=== PATIENT | female | born 1995 | race Caucasian/White ===

== ENCOUNTER → 2018-05-29 11:41 | Outpatient (REF) | payer BC, SELFPAY ==
[2018-05-29 21:14] LABS: Iron 33 ug/dL (50-175); Total Iron Binding Capacity 440 ug/dL (250-450); Transferrin Sat 8 % (15-50)
[2018-05-29 21:27] LABS: Absolute Basophil Count 0.03 k/cumm (0.0-0.2); Absolute Lymphocyte Count 1.83 k/cumm (1.2-3.4); Absolute Monocyte Count 0.57 k/cumm (0.11-0.7); Absolute Neutrophil Count 2.84 k/cumm (1.2-6.7); Basophils % 0.5; Eosinophils % 11.7; HCT 37.3 % (36.0-46.0); HGB 11.2 g/dL (12.0-15.5); Lymphocytes % 30.7; Mean Corpuscular Hemoglobin 23.6 pg (27.0-33.0); Mean Corpuscular Volume 78.7 fL (80-95); Mean Platelet Volume 10.5 fL (8.0-11.0); Monocytes % 9.5; Neutrophils % 47.6; Platelet Count 359 x1000/uL (130-400); RBC 4.74 m/cumm (4.00-5.20); RBC Distribution Width 15.3 % (11.7-14.6); White Blood Cell Count 5.97 k/cumm (4.4-10.8)
[2018-05-29 21:48] LABS: ALT 14 U/L (12-78); AST 16 U/L (15-37); Albumin 4.5 g/dL (3.4-5.0); Alkaline Phosphatase 59 U/L (46-116); Bilirubin, Total 0.4 mg/dL (0.2-1.0); Ferritin 6 ng/mL (8-388); Total Protein 7.8 g/dL (6.4-8.2)
[2018-05-29 22:05] LABS: Bilirubin, Direct 0.13 mg/dL (0.00-0.20)
[2018-05-29 22:50] LABS: Diff Comment Diff Reviewed
== END ==
LOC: NCHCN 11:41
PROVIDERS: PCP Nurse Practitioner; Visit Provider Nurse Practitioner
DX: L50.9 Urticaria, unspecified (principal); D50.9 Iron deficiency anemia, unspecified
CPT/HCPCS: 80076; 82728; 83540; 83550; 84443; 85025

== ENCOUNTER 2020-12-15 17:38 | Outpatient (REF) | payer BC, SELFPAY ==
--- NOTE | 2020-12-15 10:45 | PAPFT_PTH ---
PATIENT: Nanci Freed LOC: [facility]#:[id number] AGE/SX: 25/F ROOM: RE12/15/[address]: Honey Campbell : 1995 BED: DIS: 12/15/2020 SPEC #: [id number] RECD: 12/16/20 13:04 STATUS: LINDA TRUONG #: [id number] BENJAMIN: 12/15/20 10:[address]: Honey Campbell DEPT: [facility] Cytology RECD BY: Fiona Marti ENTERED: 12/16/20 13:04 SP TYPE: PAPFT OTHR DR: Marion Balderrama Tissues: 1 - CX/ENDOCX FOR PAP SMEARS Procedures: PAP THIN PREP/[facility] Screening Comments: [id number] (CHLAMYDIA/GC)
[2020-12-18 07:49] LABS: Chlamydia Result Negative (Negative); GC Result Negative (Negative)
== END 2020-12-15 17:39 | disposition home or self-care (01) ==
LOC: NCHCN 17:38
PROVIDERS: PCP Nurse Practitioner; Visit Provider Family Medicine
DX: Z11.3 Encounter for screening for infections with a predominantly sexual mode of transmission (principal); Z12.4 Encounter for screening for malignant neoplasm of cervix; Z00.00 Encounter for general adult medical examination without abnormal findings
CPT/HCPCS: 87491; 87591; 88142

== ENCOUNTER 2021-10-26 16:57 | Outpatient (REF) | payer BC, SELFPAY ==
[2021-10-26 20:55] LABS: Abs Immature Grans 0.01 10^3/uL (0.0-0.06); Absolute Basophil Count 0.04 10^3/uL (0.0-0.2); Absolute Eosinophil Count 0.36 10^3/uL (0.0-0.7); Absolute Lymphocyte Count 1.74 10^3/uL (1.2-3.4); Absolute Neutrophil Count 5.28 10^3/uL (1.2-6.7); Basophils % 0.5; Eosinophils % 4.4; HCT 39.8 % (36.0-46.0); HGB 11.7 g/dL (11.2-15.7); Immature Grans % 0.1; Lymphocytes % 21.4; MCH 22.3 pg (27.0-33.0); MCHC 29.4 % (32.0-36.0); MCV 75.8 fL (80-95); MPV 10.2 fL (8.0-11.0); Monocytes % 8.6; Nucleated RBC 0 %; Platelet Count 392 10^3/uL (130-400); RBC 5.25 10^6/uL (3.93-5.22); RDW 16.8 % (11.7-14.6); WBC 8.13 10^3/uL (4.4-10.8)
[2021-10-26 21:06] LABS: Iron 24 ug/dL (50-170)
[2021-10-26 21:08] LABS: ALT 26 U/L (14-59); AST 19 U/L (15-37); Albumin 4.1 g/dL (3.4-5.0); Alkaline Phosphatase 59 U/L (46-116); Anion Gap 10.4 mmol/L (3-11); BUN 10 mg/dL (7-18); Bilirubin, Total 0.2 mg/dL (0.2-1.0); CO2 26.6 mmol/L (21.0-32.0); CREATININE 0.6 mg/dL (0.55-1.02); Calcium 9.7 mg/dL (8.5-10.1); Chloride 103 mmol/L (98-107); Glucose 94 mg/dL (74-106); Potassium 3.8 mmol/L (3.5-5.1); Sodium 140 mmol/L (136-145); Total Protein 7.9 g/dL (6.4-8.2)
== END 2021-10-26 16:58 | disposition home or self-care (01) ==
LOC: NCHCN 16:57
PROVIDERS: PCP Family Medicine; Visit Provider Family Medicine
DX: F41.8 Other specified anxiety disorders (principal); D50.9 Iron deficiency anemia, unspecified
CPT/HCPCS: 80053; 83540; 85025

== ENCOUNTER 2024-01-24 05:16 | Outpatient (CLI) | payer BC, SELFPAY ==
[2024-01-24] MEDS: Inhaler, Assist Device 1 EACH MC (16:41)
[2024-01-24] MEDS: Levalbuterol HFA 15 GM INH 4 PUFF IH (16:41)
--- NOTE | 2024-01-25 15:07 | W.PFT ---
Date of service: 01/24/24 Time of Service: 15:30 Pulmonary Function Test Result Indications: Asthma Interpretation Spirometry: There is no airflow limitation. No bronchodilator response. Lung Volumes: Normal lung volumes Diffusion Capacity: Normal diffusion Airway Pressure: Normal airways resistance Impression Normal pulmonary function testing Clinical Correlation therefore is recommended.
== END 2024-01-24 05:17 | disposition home or self-care (01) ==
LOC: RT 05:16
PROVIDERS: PCP Family Medicine; Visit Provider Family Medicine
DX: J45.909 Unspecified asthma, uncomplicated (principal)
CPT/HCPCS: 94060; 94726; 94729

== ENCOUNTER 2024-05-11 01:00 | Outpatient (CLI) | payer BC, SELFPAY ==
[2024-05-11 14:43] LABS: Panorama Kit Sent via Fed Ex
[2024-05-11 14:52] LABS: Abs Immature Grans 0.05 10^3/uL (0.0-0.06); Absolute Basophil Count 0.04 10^3/uL (0.0-0.2); Absolute Lymphocyte Count 1.51 10^3/uL (1.2-3.4); Absolute Monocyte Count 0.61 10^3/uL (0.1-0.8); Absolute Neutrophil Count 6.79 10^3/uL (1.2-6.7); Basophils % 0.4 %; Eosinophils % 4.3 %; HCT 34.4 % (36.0-46.0); HGB 10.5 g/dL (11.2-15.7); Immature Grans % 0.5 %; Lymphocytes % 16.1 %; MCH 22.8 pg (27.0-33.0); MCHC 30.5 % (32.0-36.0); MCV 75 fL (80-95); MPV 9.6 fL (8.0-11.0); Monocytes % 6.5 %; Neutrophils % 72.2 %; Platelet Count 310 10^3/uL (130-400); RBC 4.61 10^6/uL (3.93-5.22); RDW 17.5 % (11.7-14.6)
[2024-05-11 15:39] LABS: Diff Comment RBC Morph Reviewed; Microcytosis 1+
[2024-05-11 22:44] LABS: Hepatitis B Surface Ag Negative (Negative)
[2024-05-11 23:12] LABS: Hepatitis C Ab w Rflx HCV PCR Negative (Negative)
[2024-05-11 23:28] LABS: HIV-1/2 Ag & Ab Screen Negative (Negative)
[2024-05-13 14:38] LABS: Syphilis IgG w/Reflex Nonreactive (Nonreactive)
[2024-05-14 12:16] LABS: Varicella IgG Antibody Negative (See Note)
[2024-05-14 12:42] LABS: Rubella IgG Ab (UVM) Negative (See Note)
== END 2024-05-11 01:01 | disposition home or self-care (01) ==
LOC: LBO 01:00
PROVIDERS: PCP Nurse Practitioner Family; Visit Provider Advanced Practice Midwife
DX: Z34.91 Encounter for supervision of normal pregnancy, unspecified, first trimester (principal)
CPT/HCPCS: 36415; 86787; 86803; 86850; 86900; 86901; 87340; 87389; 85025; 86762; 86780

== ENCOUNTER 2024-05-11 14:36 | Outpatient (REF) | payer BC, SELFPAY ==
--- NOTE | 2024-05-11 14:00 | PAPFT_PTH ---
PATIENT: Nanci Freed LOC: [facility] U#:[id number] AGE/SX: 29/F ROOM: RE05/11/[address]: Ofelia Heath : 1995 BED: DIS: 05/11/2024 SPEC #: [id number] RECD: 05/11/24 17:29 STATUS: LINDA REQ #: [id number] BENJAMIN: 05/11/24 14:[address]: Ofelia Heath DEPT: [facility] Cytology RECD BY: Fiona Marti ENTERED: 05/11/24 17:29 SP TYPE: PAPFT OTHR DR: Caitie Patterson Tissues: 1 - CX/ENDOCX FOR PAP SMEARS Procedures: PAP THIN PREP/[facility]VM Screening Comments: [id number] (CHLAMYDIA/GC)
[2024-05-11 17:14] LABS: *AMPHETAMINES SCREEN URINE Negative (Negative); *BARBITURATES SCREEN URINE Negative (Negative); *BENZODIAZEPINES SCREEN URINE Negative (Negative); Cannabinoids THC Positive (Negative); Cocaine Screen,Urine Negative (Negative); METHADONE URINE SCREEN Negative (Negative); OPIATES URINE SCREEN Negative (Negative)
[2024-05-11 17:20] LABS: Tricyclic Antidepressants Negative (Negative)
[2024-05-14 10:13] LABS: Fentanyl Scr w/Rfx Confirm Negative ng/mL (<1)
[2024-05-14 12:47] LABS: Chlamydia Result Negative (Negative); GC Result Negative (Negative)
[2024-05-17 05:26] LABS: Buprenorphine Negative ng/mL (Cutoff: 5.0); Norbuprenorphine Negative ng/mL (Cutoff: 2.5)
== END 2024-05-11 14:37 | disposition home or self-care (01) ==
LOC: LBN 14:36
PROVIDERS: PCP Nurse Practitioner Family; Visit Provider Advanced Practice Midwife
DX: Z34.91 Encounter for supervision of normal pregnancy, unspecified, first trimester (principal)
CPT/HCPCS: 80307; 80348; 87491; 87591; 88142; 87086; 87480; 87510; 87660

== ENCOUNTER 2024-09-06 01:00 | Outpatient (CLI) | payer BC, SELFPAY ==
--- NOTE | 2024-09-06 11:45 | DI.US_ITS ---
Exam(s) US OB LUIS WEIGHT EXAM: US OB LUIS WEIGHT CLINICAL HISTORY: interval growth,smoker,luis,f/u kidneys,z34.90,O35.EXX0. TECHNIQUE: Transabdominal obstetrical ultrasound performed. COMPARISON: US POCUS EXAM from 04/17/2024 US US OB 2-3 TRIMESTER from 07/06/2024 US US OB F/U FACIAL/LVOT/RVOT from 07/13/2024 FINDINGS:: Number of fetuses: 1 position: CEPHALIC Placental location: POSTERIOR No evidence of previa. BIOMETRIC DATA: BPD: 7.43cm, 29weeks 6days HC: 27.03cm, 29weeks 3days AC: 24.73cm, 29weeks FL: 5.66cm, 29weeks 5days EFW: 1,373.34g, 3lb 0.56oz, 66% Composite Age: 29weeks 4days [facility]: 11/18/2024 Heart Rate: 152bpm Amniotic fluid index: 11.57cm. Visually, amount of fluid is within normal limits. The kidneys are also imaged. The renal pelves measure less than 4 millimeters, not increasing from prior. IMPRESSION: size and weight are within the expected range. DATA REPOSITORY:
== END 2024-09-06 01:20 ==
LOC: DI 01:00
PROVIDERS: PCP Nurse Practitioner Family; Visit Provider Advanced Practice Midwife
DX: O35.EXX0 Maternal care for other (suspected) fetal abnormality and damage, fetal genitourinary anomalies, not applicable or unspecified (principal); F17.210 Nicotine dependence, cigarettes, uncomplicated; Z3A.29 29 weeks gestation of pregnancy
CPT/HCPCS: 76816

== ENCOUNTER 2024-09-06 01:58 | Outpatient (CLI) | payer BC, SELFPAY ==
[2024-09-06 12:40] LABS: HCT 32.9 % (36.0-46.0); HGB 9.9 g/dL (11.2-15.7); MCH 22.7 pg (27.0-33.0); MCHC 30.1 % (32.0-36.0); MCV 76 fL (80-95); MPV 10.2 fL (8.0-11.0); Platelet Count 223 10^3/uL (130-400); RBC 4.36 10^6/uL (3.93-5.22); RDW 15.7 % (11.7-14.6); RDW-SD 42.5 fL; WBC 9.49 10^3/uL (4.4-10.8)
[2024-09-06 13:14] LABS: Glucose,1 Hr (Glucola) 100 mg/dL (80-140)
== END 2024-09-06 01:59 | disposition home or self-care (01) ==
LOC: LBO 01:58
PROVIDERS: Advanced Practice Midwife; PCP Nurse Practitioner Family; Visit Provider Advanced Practice Midwife
DX: Z34.93 Encounter for supervision of normal pregnancy, unspecified, third trimester (principal); Z3A.28 28 weeks gestation of pregnancy
CPT/HCPCS: 36415; 82950; 85027

== ENCOUNTER 2024-10-25 11:19 | Outpatient (REF) | payer MEDICAID, SELFPAY ==
[2024-10-25 12:52] LABS: *AMPHETAMINES SCREEN URINE Negative (Negative); *BARBITURATES SCREEN URINE Negative (Negative); *BENZODIAZEPINES SCREEN URINE Negative (Negative); Cannabinoids THC Positive (Negative); Cocaine Screen,Urine Negative (Negative); METHADONE URINE SCREEN Negative (Negative); OPIATES URINE SCREEN Negative (Negative)
[2024-10-25 12:53] LABS: Tricyclic Antidepressants Negative (Negative)
[2024-10-26 13:46] LABS: Fentanyl Scr w/Rfx Confirm Negative ng/mL (<1)
[2024-10-31 07:47] LABS: Buprenorphine Negative ng/mL (Cutoff: 5.0)
== END 2024-10-25 11:20 | disposition home or self-care (01) ==
LOC: LBN 11:19
PROVIDERS: Advanced Practice Midwife; PCP Nurse Practitioner Family; Visit Provider Advanced Practice Midwife
DX: Z34.91 Encounter for supervision of normal pregnancy, unspecified, first trimester (principal)
CPT/HCPCS: 80307; 80348

== ENCOUNTER 2024-11-07 09:15 | Outpatient (REF) | payer MEDICAID, SELFPAY | END 2024-11-07 09:16 | disposition home or self-care (01) | LOC: LBN 09:15 | PROVIDERS: PCP Nurse Practitioner Family; Visit Provider Advanced Practice Midwife | DX: Z34.93 Encounter for supervision of normal pregnancy, unspecified, third trimester (principal) | CPT/HCPCS: 87081 ==

== ENCOUNTER 2024-11-23 09:55 | Outpatient (CLI) | payer MEDICAID, SELFPAY ==
[2024-11-23 11:05] VITALS: BP 126/82; PULSE 65; TEMP 37.2
[2024-11-23 11:35] VITALS: BP 126/82; PULSE 65
--- NOTE | 2024-11-23 11:51 | W.OBNST ---
Date of service: 11/23/24 Time of Service: 11:51 NST Evaluation Reason for NST Reasons for Nonstress Test: OTHER, SEE COMMENT Reason for NST Other: ? AROM Gestational Age Gestational Age in Weeks and Days: 39 Weeks and 5Days Test and Monitor Explained Test/Monitor Explained: Test Explained and Monitor Explained Vital Signs Blood Pressure: 126/82 Pulse: 65 Temperature: 99.0 F NST Information Date on Monitor: 11/23/24 Time on Monitor: 11:06 Date off Monitor: 11/23/24 Time off Monitor: 11:25 Total Time on Monitor: 19 NST Interventions: PO Hydration Contraction Frequency: mild irregular NST Evaluation Patient States Movement: Present FHR Baseline: 140 Variability: Moderate 6-25 bpm Accelerations: 15x15 Decelerations: None NST Results: Reactive Note Ultrasound Done: N/A. NST Note Note: SSE performed, neg pooling, neg nitrizine, neg ferning Cvx exam 1/50% posterior, vtx -3 intact membranes F/up as scheduled next week with OB Provider. NST Reviewed and Verified by: Dahlia Farrar
[2024-11-23 11:52] VITALS: BP 126/82; PULSE 65; TEMP 37.2
== END 2024-11-23 11:47 | disposition other institution (70) ==
LOC: BCD 09:56 → OBS 11:04
PROVIDERS: PCP Nurse Practitioner Family; Visit Provider Advanced Practice Midwife
DX: O47.1 False labor at or after 37 completed weeks of gestation (principal); Z3A.39 39 weeks gestation of pregnancy
CPT/HCPCS: 59025

== ENCOUNTER 2024-11-28 13:19 | Outpatient (CLI) | payer MEDICAID, SELFPAY ==
[2024-11-28 12:19] LABS: HCT 40.3 % (36.0-46.0); HGB 12.8 g/dL (11.2-15.7); MCH 25.2 pg (27.0-33.0); MCHC 31.8 % (32.0-36.0); MCV 79 fL (80-95); Platelet Count 208 10^3/uL (130-400); RBC 5.08 10^6/uL (3.93-5.22); RDW 19.3 % (11.7-14.6); WBC 9.23 10^3/uL (4.4-10.8)
[2024-11-28 12:52] LABS: ALT 18 U/L (14-59); AST 15 U/L (15-37); Albumin 2.8 g/dL (3.4-5.0); Alkaline Phosphatase 242 U/L (46-116); Anion Gap 11.1 mmol/L (3-11); BUN 11 mg/dL (7-18); Bilirubin, Total 0.33 mg/dL (0.2-1.0); CO2 24.9 mmol/L (21.0-32.0); CREATININE 0.6 mg/dL (0.55-1.02); Calcium 9.2 mg/dL (8.5-10.1); Chloride 105 mmol/L (98-107); Estimated GFR 126.09 (mL/min/1.73m2); Glucose 83 mg/dL (74-106); Sodium 141 mmol/L (136-145); Total Protein 7.1 g/dL (6.4-8.2)
[2024-11-28 13:14] LABS: COMMENT (LAB VIEW ONLY) 168.76 mg/dL; PROTEIN 57.1 mg/dL; Prot/Crea Ur Ratio 0.33
== END 2024-11-28 13:20 | disposition home or self-care (01) ==
LOC: LBO 13:22
PROVIDERS: PCP Nurse Practitioner Family; Visit Provider Advanced Practice Midwife
DX: Z34.93 Encounter for supervision of normal pregnancy, unspecified, third trimester (principal)
CPT/HCPCS: 36415; 80053; 85027; 82565; 84156

== ENCOUNTER 2024-11-30 07:55 | Outpatient (CLI) | payer MEDICAID, SELFPAY ==
--- OUTSIDE RECORDS SUMMARY | 2024-11-30 07:57 | XMS_ITS | Referral Summary ---
Author Organization [facility] Address [address] [place] [address] Care Team Providers Care Skein Dyer Name Role Phone Jalil King MD Primary Care Provider Rafael castillo Encounters Date Type Department Care Team Description 10/25/2024 Lab Requisition [facility] Pathology & Laboratory Medicine - [facility] [address] [place] [address] Outr Resulting Lab, Provider from Last 3 Months Social History Tobacco Use Types Packs/Day Years Used Date Smoking Tobacco: Never Assessed Comments Unknown Sex and Gender Information Value Date Recorded Sex Assigned at Not on file Legal Sex Female 7:58 EDT Gender Identity Not on file Sexual Orientation Not on file Plan of Treatment Not on file Procedures Procedure Name Priority Date/Time Associated Diagnosis Comments FENTANYL SCREEN WITH REFLEX TO CONFIRMATION, U Routine 10/25/2024 10:50 EST HEPATITIS C AB W REFLEX TO HCV RNA BY PCR Routine 05/11/2024 14:35 EDT from Last 3 Months or Most Recently Relevant to Health Maintenance Results * FENTANYL SCREEN WITH REFLEX TO CONFIRMATION, U (10/25/2024 10:50 EST) Fentanyl Screen with Reflex to Confirmation, U Negative <1 ng/mL 10/26/2024 13:41 EST [facility] Urine URINE / Unknown 10/25/2024 1 0:50 EST 10/25/2024 21:44 EST Narrative [facility] - 10/26/2024 13:41 EST Testing performed by: [facility] [address] [facility], [address], [place] [address] Automatic Quilling Machine Operator: Aris Maurer MD; CLIA # [id number] us Provider Outr Resulting Lab URINALYSIS ORDERABLE S Final Result [facility] [address] [facility], [address] [place] [address], [facility] [phone] * HEPATITIS C AB W REFLEX TO HCV RNA BY PCR (05/11/2024 14:35 EDT) Hep C Antibody Negative Negative 05/11/2024 23:07 EDT [facility] Blood VENOUS BLOOD / Unknown 05/11/2024 14:35 EDT 05/11/2024 21:29 EDT us Provider Outr Resulting Lab CHEMISTRY & BLOOD GA S ORDERABLES Final Result [facility] [address] [place] [phone] from Last 3 Months or Most Recently Relevant to Health Maintenance Care Teams Skein Dyer Relationship Specialty Start Date End Date Jalil King MD PCP - General 07/30/13
--- OUTSIDE RECORDS SUMMARY | 2024-11-30 07:57 | XMS_ITS | Encounter Summary ---
Author Organization [facility] Address [address] [place] [address] Care Team Providers Care Drilling Foreman Name Role Phone Jalil King MD Primary Care Provider Rafael castillo Encounter Details Date Type Department Care Team (Late st Contact Info) Description 10/25/2024 Lab Requisition [facility] Pathology & Laboratory Medicine - [address] [phone] Outr Resulting Lab, Provider Social History Tobacco Use Types Packs/Day Years Used Date Smoking Tobacco: Never Assessed Comments Unknown Sex and Gender Information Value Date Recorded Sex Assigned at Not on file Legal Sex Female 7:58 EDT Gender Identity Not on file Sexual Orientation Not on file documented as of this encounter Plan of Treatment Not on file documented as of this encounter Procedures Procedure Name Priority Date/Time Associated Diagnosis Comments FENTANYL SCREEN WITH REFLEX TO CONFIRMATION, U Routine 10/25/2024 10:50 EST documented in this encounter Results * FENTANYL SCREEN WITH REFLEX TO CONFIRMATION, U (10/25/2024 10:50 EST) Fentanyl Screen with Reflex to Confirmation, U Negative <1 ng/mL 10/26/2024 13:41 EST [facility] Urine URINE / Unknown 10/25/2024 1 0:50 EST 10/25/2024 21:44 EST Narrative [facility] - 10/26/2024 13:41 EST Testing performed by: [facility] [address] [place] [address], [address], [place] [address] Belt Notcher: Aris Maurer MD; CLIA # [id number] us Provider Outr Resulting Lab URINALYSIS ORDERABLE S Final Result [facility] [address] [facility], [address] [phone] documented in this encounter Visit Diagnoses Not on filedocumented in this encounter Care Teams Drilling Foreman Relationship Specialty Start Date End Date Jalil King MD PCP - General 07/30/13 documented as of this encounter
--- OUTSIDE RECORDS SUMMARY | 2024-11-30 07:57 | XMS_ITS | Clinical Summary ---
Author Organization [facility] Address [address] [place] [address] Care Team Providers Care Glue Plant Operator Name Role Phone Jalil King MD Primary Care Provider Rafael castillo Encounters Date Type Department Care Team Description 10/25/2024 Lab Requisition [facility] Pathology & Laboratory Medicine - [facility] [address] [place] [address] Outr Resulting Lab, Provider from Last 3 Months Social History Tobacco Use Types Packs/Day Years Used Date Smoking Tobacco: Never Assessed Comments Unknown Sex and Gender Information Value Date Recorded Sex Assigned at Not on file Legal Sex Female 7:58 EDT Gender Identity Not on file Sexual Orientation Not on file Plan of Treatment Health Maintenance Due Date Last Done Comments Hepatitis B Vaccine (1 of 3 - 19+ 3-dose series) 03/07 COVID-19 Vaccine (2023- season) 2024 Hepatitis C Screen Completed 05/11/2024 Procedures Procedure Name Priority Date/Time Associated Diagnosis [...] U Negative <1 ng/mL 10/26/2024 13:41 EST [facility] Urine URINE / Unknown 10/25/2024 1 0:50 EST 10/25/2024 21:44 EST Narrative [facility] - 10/26/2024 13:41 EST Testing performed by: [facility] [address] [facility], [address], [place] [address] Space Control Supervisor: Aris Maurer MD; CLIA # [id number] us Provider Outr Resulting Lab URINALYSIS ORDERABLE S Final Result [facility] [address] [place] [address], [facility] [address] [place] [address], [facility] [phone] * HEPATITIS C AB W REFLEX TO HCV RNA BY PCR (05/11/2024 14:35 EDT) Hep C Antibody Negative Negative 05/11/2024 23:07 EDT [facility] Blood VENOUS BLOOD / Unknown 05/11/2024 14:35 EDT 05/11/2024 21:29 EDT us Provider Outr Resulting Lab CHEMISTRY & BLOOD GA S ORDERABLES Final Result [facility] [address] [place] [address] from Last 3 Months or Most Recently Relevant to Health Maintenance Care Teams Glue Plant Operator Relationship Specialty Start Date End Date Jalil King MD PCP - General 07/30/13
--- OUTSIDE RECORDS SUMMARY | 2024-11-30 07:58 | XMS_ITS | Encounter Summary ---
Author Organization [facility] Address [address] [place] [address] Care Team Providers Care Lock Plater Name Role Phone Jalil King MD Primary Care Provider Rafael castillo Encounter Details Date Type Department Care Team (Late st Contact Info) Description 05/14/2024 Lab Requisition [facility] Pathology & Laboratory Medicine - [address] [address] [address] [place], [place] [address] Encounter for other general examination Social History Tobacco Use Types Packs/Day Years [...] Procedure Name Priority Date/Time Associated Diagnosis Comments PAP TEST Today 05/11/2024 14:00 EDT Encounter for other general examination documented in this encounter Results * PAP TEST (05/11/2024 14:00 EDT) Specimens A. Cervix and/or Endocervix , ThinPrep Imaging System with Manual Evaluation 05/16/2024 12:[address] [facility] Specimen Adequacy Satisfactory for Evaluation - transformation zone component absent 05/16/2024 12:[address] [facility] General Categorization Negative for intraepithelial lesion or malignancy 05/16/2024 12:[address] [facility] Descriptive Diagnosis Shift in micheal present suggestive of bacterial vaginosis. 05/16/2024 12:[address] [facility] Attestation . 05/16/2024 12:[address] [facility] at 1238 Clinical History See below 05/16/20 12:[address] [facility] Performing Lab [facility] 05/16/2024 12:[address] [facility] Scanned Images 05/16/2024 12:[address] [facility] Pap Test CERVIX UTERI STRUCTURE / Unknown 05/11/2024 14:00 EDT 05/14/2024 14:36 EDT us Ofelia Heath CN PATHOLOGY ORDERABLES F inal Result [facility] [address] [place], [place] [address] documented in this encounter Visit Diagnoses Diagnosis Encounter for other general examination documented in this encounter Care Teams Lock Plater Relationship Specialty Start Date End Date Jalil King MD PCP - General 07/30/13 documented as of this encounter
--- OUTSIDE RECORDS SUMMARY | 2024-11-30 07:58 | XMS_ITS | Encounter Summary ---
Author Organization [facility] Address [address] [place] [address] Care Team Providers Care Pension Adviser Name Role Phone Jalil King MD Primary Care Provider Rafael castillo Encounter Details Date Type Department Care Team (Late st Contact Info) Description 05/11/2024 Lab Requisition [facility] Pathology & Laboratory Medicine - [address] [phone] Outr Resulting Lab, Provider Social History Tobacco [...] Procedure Name Priority Date/Time Associated Diagnosis Comments HIV 1/2 ANTIGEN AND ANTIBODY, 4TH GENERATION Routine 05/11/2024 14:35 EDT documented in this encounter Results * HIV 1/2 ANTIGEN AND ANTIBODY, 4TH GENERATION (05/11/2024 14:35 EDT) HIV 1 and 2 Antibody/p24 Antigen, 4th Generation Negative Negative 05/11/2024 23:23 EDT [facility] Comment:If acute HIV-1 infec tion is suspected in a high risk patient, submit plasma specimen for HIV-1 RNA quantitation test. Blood VENOUS BLOOD / Unknown 05/11/2024 14:35 EDT 05/11/2024 21:29 EDT Narrative [facility] - 05/11/2024 23:23 EDT Fourth Generation assay performed on the Siemens Centaur XPT. us Provider Outr Resulting Lab IMMUNOLOGY AND SEROL OGY ORDERABLES Final Result [facility] [address] [place], [place] [phone] documented in this encounter Visit Diagnoses Not on filedocumented in this encounter Care Teams Pension Adviser Relationship Specialty Start Date End Date Jalil King MD PCP - General 07/30/13 documented as of this encounter
--- OUTSIDE RECORDS SUMMARY | 2024-11-30 07:58 | XMS_ITS | Encounter Summary ---
Author Organization [facility] Address [address] [place] [address] Care Team Providers Care Patient Ombudsperson Name Role Phone Jalil King MD Primary Care Provider Rafael castillo Encounter Details Date Type Department Care Team (Late st Contact Info) Description 12/16/2020 Lab Requisition [facility] Pathology & Laboratory Medicine - [address] [phone] Outr Resulting Lab, Provider Social History Tobacco [...] Procedure Name Priority Date/Time Associated Diagnosis Comments CHLAMYDIA/N. GONORRHOEAE AMPLIFIED NUCLEIC ACID, THINPREP Routine 12/15/2020 10:45 EST documented in this encounter Results * CHLAMYDIA/N. GONORRHOEAE AMPLIFIED RNA, THINPREP (12/15/2020 10:45 EST) Neisseria gonorrhoeae Result Negative Negative 12/18/2020 7:43 EST [facility] Chlamydia trachomatis Result Negative Negative 12/18/2020 7:43 EST [facility] Papanicolaou smear specimen (specimen) CERVIX UTERI STRUCTURE / Unknown 12/15/2020 10:45 EST 12/17/2020 8:13 EST us Provider Outr Resulting Lab MICROBIOLOGY - GENER AL ORDERABLES Final Result [facility] [address] [place] [address] documented in this encounter Visit Diagnoses Not on filedocumented in this encounter Care Teams Patient Ombudsperson Relationship Specialty Start Date End Date Jalil King MD PCP - General 07/30/13 documented as of this encounter
--- OUTSIDE RECORDS SUMMARY | 2024-11-30 07:58 | XMS_ITS | Encounter Summary ---
Author Organization [facility] Address [address] [place] [address] Care Team Providers Care Operations Logistics Analyst Name Role Phone Jalil King MD Primary Care Provider Rafael castillo Encounter Details Date Type Department Care Team (Latest Contact Info) Description 12/17/2020 Lab Requisition [facility] Pathology & Laboratory Medicine - [facility] [address] [place] [address] Honey Campbell MD [address] [place] [phone] Encounter for general adult medical examination without abnormal findings; Encounter for screening for malignant neoplasm of cervix; Encounter for gynecological examination (general) (routine) without abnormal findings Social History Tobacco Use Types Packs/Day Years [...] Date/Time Associated Diagnosis Comments PAP TEST Today 12/15/2020 10:45 EST Encounter for general adult medical examination without abnormal findings Encounter for screening for malignant neoplasm of cervix Encounter for gynecological examination (general) (routine) without abnormal findings documented in this encounter Results * PAP TEST (12/15/2020 10:45 EST) Specimens A. Cervix and/or Endocervix , ThinPrep Imaging System with Manual Evaluation 12/25/2020 13:57 EST [facility] Specimen Adequacy Satisfactory for Evaluation - transformation zone component present 12/25/2020 13:57 EST [facility] General Categorization Negative for intraepithelial lesion or malignancy 12/25/2020 13:57 EST [facility] Attestation . 12/25/2020 13:57 EST [facility] at 1357 Clinical History See below 12/26/19 13:57 EST [facility] Performing Lab [facility] 12/25/2020 13:57 EST [facility] Scanned Images 12/25/2020 13:57 EST [facility] Papanicolaou smear specimen (specimen) CERVIX UTERI STRUCTURE / Unknown 12/15/2020 10:45 EST 12/17/2020 12:03 EST us Honey Campbell MD PATHOLOGY ORDERABLES Final Res ult [facility] [address] [place] [address] documented in this encounter Visit Diagnoses Diagnosis Encounter for general adult medical examination without abnormal findings Unspecified general medical examination Encounter for screening for malignant neoplasm of cervix Screening for malignant neoplasm of the cervix Encounter for gynecological examination (general) (routine) without abnormal findings documented in this encounter Care Teams Operations Logistics Analyst Relationship Specialty Start Date End Date Jalil King MD PCP - General 07/30/13 documented as of this encounter
--- OUTSIDE RECORDS SUMMARY | 2024-11-30 07:58 | XMS_ITS | Encounter Summary ---
Author Organization [facility] Address [address] [place] [address] Care Team Providers Care Healthcare Or Medical Name Role Phone Jalil King MD Primary Care Provider Rafael castillo Encounter Details Date Type Department Care Team (Late st Contact Info) Description 05/11/2024 Lab Requisition [facility] Pathology & Laboratory Medicine - [address] [phone] Outr Resulting Lab, Provider Social History Tobacco [...] Procedure Name Priority Date/Time Associated Diagnosis Comments RUBELLA IGG ANTIBODY Routine 05/11/2024 14:35 EDT VARICELLA IGG ANTIBODY Routine 05/11/2024 14:35 EDT documented in this encounter Results * VARICELLA IGG ANTIBODY (05/11/2024 14:35 EDT) Varicella IgG Ab Negative See Note 05/14/2024 12:11 EDT [facility] Comment:Absence of detectabl e Varicella Zoster virus IgG antibodies. A negative result generally indicates no detectable antibody, but does not rule out acute infection. If VZV exposure is suspected, a second sample should be collected and tested no less than one or two weeks later. Blood VENOUS BLOOD / Unknown 05/11/2024 14:35 EDT 05/11/2024 21:29 EDT us Provider Outr Resulting Lab IMMUNOLOGY AND SEROL OGY ORDERABLES Final Result Performing Organization Address [facility] Co de Phone Number [facility] [address] [place], [place] [phone] * RUBELLA IGG ANTIBODY (05/11/2024 14:35 EDT) Rubella IgG Ab Negative See Note 05/14/2024 12:36 EDT [facility] Comment:Sample is considered negative for IgG antibodies to Rubella virus. A negative result presumes that immunity has not been acquired. If exposure to Rubella virus is suspected despite a negative finding, a second specimen should be collected and tested for Rubella IgG Ab one or two weeks later. Blood VENOUS BLOOD / Unknown 05/11/2024 14:35 EDT 05/11/2024 21:29 EDT us Provider Outr Resulting Lab CHEMISTRY & BLOOD GA S ORDERABLES Final Result Performing Organization Address [facility] Co de Phone Number [facility] [address] [place] [address] documented in this encounter Visit Diagnoses Not on filedocumented in this encounter Care Teams Healthcare Or Medical Relationship Specialty Start Date End Date Jalil King MD PCP - General 07/30/13 documented as of this encounter
--- OUTSIDE RECORDS SUMMARY | 2024-11-30 07:58 | XMS_ITS | Encounter Summary ---
Author Organization [facility] Address [address] [place] [address] Care Team Providers Care Skidder Operator Name Role Phone Unknown, Provider Primary Care Provider Unava ilable Encounter Details Date Type Department Care Team (Late st Contact Info) Description 07/26/2013 Results Only [facility] Laboratory Services - [facility] ([facility]) [address] [place] [phone] Scott Flanagan MD [address] [place] [address] Social History Tobacco Use Types Packs/Day Years [...] Procedure Name Priority Date/Time Associated Diagnosis Comments SURGICAL PATHOLOGY Routine 07/26/2013 7:59 EDT documented in this encounter Results * SURGICAL PATHOLOGY (07/26/2013 7:59 EDT) Pathology Report: SURGICAL PATHOLOGY REPORT Reports generated via electronic interface contain original data; however they are lacking the format of the original report. Caution should be taken when reading/interpreti ng unformatted reports. Name: ? SANTIAGO SHELDON ? Accession #: ? [id number] ? : ? 1995 (Age: 18) ??F ? Collect Date: ? 07/26/2013 ? Location: ? [facility] ? Receive Date: ? 07/27/2013 ? Provider: SCOTT FLANAGAN MD Copy to: YARELIS RAO MD ? Final Pathologic Diagnosis: APPENDIX, APPENDECTOMY: - ??Acute appendicitis and periappendicitis. Document reviewed and electronically signed by: MANUELA TELLES MD Report ??Date: 08/01/2013 09:26 By the signature above, the attending physician certifies that he/she has personally conducted a gross and/or microscopic examination of the described specimens and rendered or confirmed the above diagnosis. Specimen(s) Received: Appendix Clinical History: Appendicitis Gross Description: ? Received in formalin labelled with proper patient identification (initials K, C) and appendix is a vermiform appendix (8.5 cm in length x 0.7 cm in diameter), with a small amount of attached mesoappendix. The proximal margin is stapled. ? The serosa is pink-stover with abundant, adherent, fibrinopurulent exudate at the distal end. ??The cut surface is stover-yellow. ??The wall thickness ranges from 0.1-0.4 cm with no discernable perforation site. ??The lumen ranges from pinpoint to 0.4 cm in diameter and contains no fecalith. ??The proximal margin is inked blue. ? The section adjacent to the proximal stapled margin, two personal service representative cross sections and one half of the longitudinally bisected distal tip are submitted in cassette 1. Farrah Tyson 07/30/2013 08:45 AM End of Report [facility] 07/26/2013 7:59 EDT 07/27/2013 7:59 EDT us Scott Flanagan MD PATHOLOGY ORDERABLES Final Result [facility] [address] [place] [address] documented in this encounter Visit Diagnoses Not on filedocumented in this encounter Care Teams Skidder Operator Relationship Specialty Start Date End Date Unknown, Provider, PCP - General 07/28/13 07/29/13 documented as of this encounter
--- OUTSIDE RECORDS SUMMARY | 2024-11-30 07:58 | XMS_ITS | Encounter Summary ---
Author Organization [facility] Address [address] [place] [address] Care Team Providers Care Maintainer Plant Name Role Phone Jalil King MD Primary Care Provider Rafael castillo Encounter Details Date Type Department Care Team (Late st Contact Info) Description 05/11/2024 Lab Requisition [facility] Pathology & Laboratory Medicine - [address] [phone] Outr Resulting Lab, Provider Social History Tobacco [...] SCREEN WITH REFLEX TO CONFIRMATION, U Routine 05/11/2024 15:11 EDT documented in this encounter Results * FENTANYL SCREEN WITH REFLEX TO CONFIRMATION, U (05/11/2024 15:11 EDT) Fentanyl Screen with Reflex to Confirmation, U Negative <1 ng/mL 05/14/2024 10:08 EDT [facility] Urine URINE / Unknown 05/11/2024 1 5:11 EDT 05/11/2024 21:29 EDT Narrative [facility] - 05/14/2024 10:08 EDT Testing performed by: [facility] [address] [place] [address], [address], [place] [address] Permit Specialist: Aris Maurer MD; CLIA # [id number] us Provider Outr Resulting Lab URINALYSIS ORDERABLE S Final Result [facility] [address] [facility], [address] [place] [address], [place] [phone] documented in this encounter Visit Diagnoses Not on filedocumented in this encounter Care Teams Maintainer Plant Relationship Specialty Start Date End Date Jalil King MD PCP - General 07/30/13 documented as of this encounter
--- OUTSIDE RECORDS SUMMARY | 2024-11-30 07:58 | XMS_ITS | Encounter Summary ---
Author Organization [facility] Address [address] [place] [address] Care Team Providers Care Extractor Plant Operator Name Role Phone Jalil King MD Primary Care Provider Rafael castillo Encounter Details Date Type Department Care Team (Late st Contact Info) Description 05/11/2024 Lab Requisition [facility] Pathology & Laboratory Medicine - [address] [phone] Outr Resulting Lab, Provider Social History Tobacco [...] Procedure Name Priority Date/Time Associated Diagnosis Comments HEPATITIS C AB W REFLEX TO HCV RNA BY PCR Routine 05/11/2024 14:35 EDT HEPATITIS B SURFACE ANTIGEN Routine 05/11/2024 14:35 EDT documented in this encounter Results * HEPATITIS B SURFACE ANTIGEN (05/11/2024 14:35 EDT) Hep B Surface Ag Negative Negative 05/11/2024 22:39 EDT [facility] Blood VENOUS BLOOD / Unknown 05/11/2024 14:35 EDT 05/11/2024 21:29 EDT us Provider Outr Resulting Lab CHEMISTRY & BLOOD GA S ORDERABLES Final Result Performing Organization Address City/[facility] Co de Phone Number [facility] [address] [place] [address] * HEPATITIS C AB W REFLEX TO HCV RNA BY PCR (05/11/2024 14:35 EDT) Hep C Antibody Negative Negative 05/11/2024 23:07 EDT [facility] Blood VENOUS BLOOD / Unknown 05/11/2024 14:35 EDT 05/11/2024 21:29 EDT us Provider Outr Resulting Lab CHEMISTRY & BLOOD GA S ORDERABLES Final Result Performing Organization Address [facility] Co de Phone Number [facility] [address] [place], [place] [address] documented in this encounter Visit Diagnoses Not on filedocumented in this encounter Care Teams Extractor Plant Operator Relationship Specialty Start Date End Date Jalil King MD PCP - General 07/30/13 documented as of this encounter
--- OUTSIDE RECORDS SUMMARY | 2024-11-30 07:58 | XMS_ITS | Encounter Summary ---
Author Organization [facility] Address [address] [place] [address] Care Team Providers Care Supervisor Records Change Name Role Phone Jalil King MD Primary Care Provider Rafael castillo Encounter Details Date Type Department Care Team (Late st Contact Info) Description 05/11/2024 Lab Requisition [facility] Pathology & Laboratory Medicine - [address] [phone] Outr Resulting Lab, Provider Social History Tobacco [...] CHLAMYDIA/N. GONORRHOEAE AMPLIFIED NUCLEIC ACID, THINPREP Routine 05/11/2024 14:00 EDT documented in this encounter Results * CHLAMYDIA/N. GONORRHOEAE AMPLIFIED NUCLEIC ACID, THINPREP (05/11/2024 14:00 EDT) Neisseria gonorrhoeae Result Negative Negative 05/14/2024 12:41 EDT [facility] Chlamydia trachomatis Result Negative Negative 05/14/2024 12:41 EDT [facility] Pap Test CERVIX UTERI STRUCTURE / Unknown 05/11/2024 14:00 EDT 05/14/2024 8:29 EDT us Provider Outr Resulting Lab MICROBIOLOGY - GENER AL ORDERABLES Final Result [facility] [address] [place] [address] documented in this encounter Visit Diagnoses Not on filedocumented in this encounter Care Teams Supervisor Records Change Relationship Specialty Start Date End Date Jalil King MD PCP - General 07/30/13 documented as of this encounter
[2024-11-30 10:13] VITALS: BP 138/82; PULSE 63; TEMP 36.6
[2024-11-30 10:15] VITALS: BP 138/82; PULSE 63
[2024-11-30 10:34] VITALS: BP 138/82; PULSE 63; TEMP 36.6
[2024-11-30 10:45] VITALS: BP 138/82; PULSE 63; TEMP 36.6
--- NOTE | 2024-11-30 11:03 | W.OBNST ---
Date of service: 11/30/24 Time of Service: 11:03 NST Evaluation Reason for NST Reasons for Nonstress Test: OTHER, SEE COMMENT Reason for NST Other: BP check and 24hr urine drop-off Gestational Age Gestational Age in Weeks and Days: 40 Weeks and 5Days Test and Monitor Explained Test/Monitor Explained: Test Explained and Monitor Explained Vital Signs Blood Pressure: 138/82 Pulse: 63 Temperature: 97.8 F NST Information Date on Monitor: 11/30/24 Time on Monitor: 10:04 Date off Monitor: 11/30/24 Time off Monitor: 10:34 Total Time on Monitor: 30 NST Interventions: PO Hydration Contraction Frequency: q4-5 Comments: not felt per patient NST Evaluation Patient States Movement: Present FHR Baseline: 140 Variability: Moderate 6-25 bpm Accelerations: 15x15 Decelerations: None NST Results: Reactive Note Ultrasound Done: N/A. NST Note Note: S: Patient here for NST and BP check. Completed 24hr urine and this has been sent to the lab. Denies uterine contractions, vaginal bleeding or leaking of fluid, +FM. Denies s/s preeclampsia. Discussed POC, patient does not meet criteria for gestational hypertension or preeclampsia, even if protein elevated she still does not meet criteriea. Declines desire for postdates IOL today. O: Normotensive BP 138/82 A: Reactive NST at 40w5d Gestational Proteinuria, 24hr urine pending P: Discharged to home, warning signs and labor precautions reviewed. FU at scheduled IOL on Sunday 12/03 0800. NST Reviewed and Verified by: No Horn
[2024-11-30 11:06] VITALS: BP 138/82; PULSE 63; TEMP 36.6
[2024-11-30 12:39] LABS: PROTEIN 41.5 mg/dL (0.0-11.9)
[2024-11-30 12:40] LABS: TOTAL PROTEIN,URINE TIMED 342.4 mg/24hr (0.0-149.1); Total Volume 825 ml
== END 2024-11-30 10:48 ==
LOC: BCD 07:56 → OBS 10:11
PROVIDERS: Advanced Practice Midwife; PCP Nurse Practitioner Family; Visit Provider Advanced Practice Midwife
DX: O12.13 Gestational proteinuria, third trimester (principal); Z3A.40 40 weeks gestation of pregnancy
CPT/HCPCS: 59025; 81050; 84155

== ENCOUNTER 2024-11-30 20:20 | Inpatient (IN) | payer MEDICAID, SELFPAY ==
--- OUTSIDE RECORDS SUMMARY | 2024-11-30 17:52 | XMS_ITS | Encounter Summary ---
Author Organization [facility] Address [address] [place] [address] Care Team Providers Care Chair Trimmer Name Role Phone Jalil King MD Primary Care Provider Rafael castillo Encounter Details Date Type Department Care Team (Late st Contact Info) Description 05/11/2024 Lab Requisition [facility] Pathology & Laboratory Medicine - [address] [phone] Outr Resulting Lab, Provider Social History Tobacco [...] gonorrhoeae Result Negative Negative 05/14/2024 12:41 EDT [facility] Chlamydia trachomatis Result Negative Negative 05/14/2024 12:41 EDT [facility] Pap Test CERVIX UTERI STRUCTURE / Unknown 05/11/2024 14:00 EDT 05/14/2024 8:29 EDT us Provider Outr Resulting Lab MICROBIOLOGY - GENER AL ORDERABLES Final Result [facility] [address] [place] [address] documented in this encounter Visit Diagnoses Not on filedocumented in this encounter Care Teams Chair Trimmer Relationship Specialty Start Date End Date Jalil King MD PCP - General 07/30/13 documented as of this encounter
--- OUTSIDE RECORDS SUMMARY | 2024-11-30 17:52 | XMS_ITS | Encounter Summary ---
Author Organization [facility] Address [address] [place] [address] Care Team Providers Care Loom Repairer Name Role Phone Jalil King MD Primary Care Provider Rafael castillo Encounter Details Date Type Department Care Team (Latest Contact Info) Description 12/17/2020 Lab Requisition [facility] Pathology & Laboratory Medicine - [facility] [address] [place] [address] Honey Campbell MD [address] [place] [phone] Encounter for general adult medical examination [...] System with Manual Evaluation 12/25/2020 13:57 EST [facility] Specimen Adequacy Satisfactory for Evaluation - transformation zone component present 12/25/2020 13:57 EST [facility] General Categorization Negative for intraepithelial lesion or malignancy 12/25/2020 13:57 EST [facility] Attestation . 12/25/2020 13:57 EST [facility] at 1357 Clinical History See below 12/26/19 13:57 EST [facility] Performing Lab [facility] 12/25/2020 13:57 EST [facility] Scanned Images 12/25/2020 13:57 EST [facility] Papanicolaou smear specimen (specimen) CERVIX UTERI STRUCTURE / Unknown 12/15/2020 10:45 EST 12/17/2020 12:03 EST us Honey Campbell MD PATHOLOGY ORDERABLES Final Res ult [facility] [address] [place] [address] documented in this encounter Visit Diagnoses Diagnosis Encounter for general adult medical examination without abnormal findings Unspecified general medical examination Encounter for screening for malignant neoplasm of cervix Screening for malignant neoplasm of the cervix Encounter for gynecological examination (general) (routine) without abnormal findings documented in this encounter Care Teams Loom Repairer Relationship Specialty Start Date End Date Jalil King MD PCP - General 07/30/13 documented as of this encounter
--- OUTSIDE RECORDS SUMMARY | 2024-11-30 17:52 | XMS_ITS | Clinical Summary ---
Author Organization [facility] Address [address] [place] [address] Care Team Providers Care Buttonhole Marker Name Role Phone Jalil King MD Primary Care Provider Rafael castillo Encounters Date Type Department Care Team Description 10/25/2024 Lab Requisition [facility] Pathology & Laboratory Medicine - [facility] [address] [place] [address] Outr Resulting Lab, Provider from Last 3 [...] U Negative <1 ng/mL 10/26/2024 13:41 EST [facility] Urine URINE / Unknown 10/25/2024 1 0:50 EST 10/25/2024 21:44 EST Narrative [facility] - 10/26/2024 13:41 EST Testing performed by: [facility] [address] [facility], [address], [place] [address] Mechanical Expert: Aris Maurer MD; CLIA # [id number] us Provider Outr Resulting Lab URINALYSIS ORDERABLE S Final Result [facility] [address] [place] [address], [facility] [address] [place] [address], [facility] [phone] * HEPATITIS C AB W REFLEX TO HCV RNA BY PCR (05/11/2024 14:35 EDT) Hep C Antibody Negative Negative 05/11/2024 23:07 EDT [facility] Blood VENOUS BLOOD / Unknown 05/11/2024 14:35 EDT 05/11/2024 21:29 EDT us Provider Outr Resulting Lab CHEMISTRY & BLOOD GA S ORDERABLES Final Result [facility] [address] [place] [address] from Last 3 Months or Most Recently Relevant to Health Maintenance Care Teams Buttonhole Marker Relationship Specialty Start Date End Date Jalil King MD PCP - General 07/30/13
--- OUTSIDE RECORDS SUMMARY | 2024-11-30 17:52 | XMS_ITS | Encounter Summary ---
Author Organization [facility] Address [address] [place] [address] Care Team Providers Care Cashier Courtesy Booth Name Role Phone Jalil King MD Primary Care Provider Rafael castillo Encounter Details Date Type Department Care Team (Late st Contact Info) Description 10/25/2024 Lab Requisition [facility] Pathology & Laboratory Medicine - [address] [phone] Outr Resulting Lab, Provider Social History Tobacco [...] U Negative <1 ng/mL 10/26/2024 13:41 EST [facility] Urine URINE / Unknown 10/25/2024 1 0:50 EST 10/25/2024 21:44 EST Narrative [facility] - 10/26/2024 13:41 EST Testing performed by: [facility] [address] [place] [address], [address], [place] [address] Sales Technician: Aris Maurer MD; CLIA # [id number] us Provider Outr Resulting Lab URINALYSIS ORDERABLE S Final Result [facility] [address] [facility], [address] [phone] documented in this encounter Visit Diagnoses Not on filedocumented in this encounter Care Teams Cashier Courtesy Booth Relationship Specialty Start Date End Date Jalil King MD PCP - General 07/30/13 documented as of this encounter
--- OUTSIDE RECORDS SUMMARY | 2024-11-30 17:52 | XMS_ITS | Encounter Summary ---
Author Organization [facility] Address [address] [place] [address] Care Team Providers Care Laboratory Coordinator Name Role Phone Jalil King MD Primary Care Provider Rafael castillo Encounter Details Date Type Department Care Team (Late st Contact Info) Description 05/11/2024 Lab Requisition [facility] Pathology & Laboratory Medicine - [address] [phone] Outr Resulting Lab, Provider Social History Tobacco [...] 4th Generation Negative Negative 05/11/2024 23:23 EDT [facility] Comment:If acute HIV-1 infec tion is suspected in a high risk patient, submit plasma specimen for HIV-1 RNA quantitation test. Blood VENOUS BLOOD / Unknown 05/11/2024 14:35 EDT 05/11/2024 21:29 EDT Narrative [facility] - 05/11/2024 23:23 EDT Fourth Generation assay performed on the Siemens Centaur XPT. us Provider Outr Resulting Lab IMMUNOLOGY AND SEROL OGY ORDERABLES Final Result [facility] [address] [place], [place] [phone] documented in this encounter Visit Diagnoses Not on filedocumented in this encounter Care Teams Laboratory Coordinator Relationship Specialty Start Date End Date Jalil King MD PCP - General 07/30/13 documented as of this encounter
--- OUTSIDE RECORDS SUMMARY | 2024-11-30 17:52 | XMS_ITS | Encounter Summary ---
Author Organization [facility] Address [address] [place] [address] Care Team Providers Care Charge Master Coordinator Name Role Phone Jalil King MD Primary Care Provider Rafael castillo Encounter Details Date Type Department Care Team (Late st Contact Info) Description 12/16/2020 Lab Requisition [facility] Pathology & Laboratory Medicine - [address] [phone] Outr Resulting Lab, Provider Social History Tobacco [...] gonorrhoeae Result Negative Negative 12/18/2020 7:43 EST [facility] Chlamydia trachomatis Result Negative Negative 12/18/2020 7:43 EST [facility] Papanicolaou smear specimen (specimen) CERVIX UTERI STRUCTURE / Unknown 12/15/2020 10:45 EST 12/17/2020 8:13 EST us Provider Outr Resulting Lab MICROBIOLOGY - GENER AL ORDERABLES Final Result [facility] [address] [place] [address] documented in this encounter Visit Diagnoses Not on filedocumented in this encounter Care Teams Charge Master Coordinator Relationship Specialty Start Date End Date Jalil King MD PCP - General 07/30/13 documented as of this encounter
--- OUTSIDE RECORDS SUMMARY | 2024-11-30 17:52 | XMS_ITS | Referral Summary ---
Author Organization [facility] Address [address] [place] [address] Care Team Providers Care Air Conditioning Coil Assembler Name Role Phone Jalil King MD Primary Care Provider Rafael castillo Encounters Date Type Department Care Team Description 10/25/2024 Lab Requisition [facility] Pathology & Laboratory Medicine - [facility] [address] [place] [address] Outr Resulting Lab, Provider from Last 3 [...] U Negative <1 ng/mL 10/26/2024 13:41 EST [facility] Urine URINE / Unknown 10/25/2024 1 0:50 EST 10/25/2024 21:44 EST Narrative [facility] - 10/26/2024 13:41 EST Testing performed by: [facility] [address] [facility], [address], [place] [address] Mixer Attendant: Aris Maurer MD; CLIA # [id number] us Provider Outr Resulting Lab URINALYSIS ORDERABLE S Final Result [facility] [address] [facility], [address] [place] [address], [facility] [phone] * HEPATITIS C AB W REFLEX TO HCV RNA BY PCR (05/11/2024 14:35 EDT) Hep C Antibody Negative Negative 05/11/2024 23:07 EDT [facility] Blood VENOUS BLOOD / Unknown 05/11/2024 14:35 EDT 05/11/2024 21:29 EDT us Provider Outr Resulting Lab CHEMISTRY & BLOOD GA S ORDERABLES Final Result [facility] [address] [place] [address] from Last 3 Months or Most Recently Relevant to Health Maintenance Care Teams Air Conditioning Coil Assembler Relationship Specialty Start Date End Date Jalil King MD PCP - General 07/30/13
--- OUTSIDE RECORDS SUMMARY | 2024-11-30 17:52 | XMS_ITS | Encounter Summary ---
Author Organization [facility] Address [address] [place] [address] Care Team Providers Care Intelligence Director Name Role Phone Unknown, Provider Primary Care Provider Unava ilable Encounter Details Date Type Department Care Team (Late st Contact Info) Description 07/26/2013 Results Only [facility] Services - [facility] ([facility] [address] [place] [phone] Scott Flanagan MD [address] [place] [address] Social History Tobacco Use Types Packs/Day Years [...] ? SANTIAGO SHELDON ? Accession #: ? [id number] ? : ? 1995 (Age: 18) ??F ? Collect Date: ? 07/26/2013 ? Location: ? [facility] ? Receive Date: ? 07/27/2013 ? Provider: SCOTT FLANAGAN MD Copy to: YARELIS ROA MD ? Final Pathologic Diagnosis: APPENDIX, APPENDECTOMY: [...] adjacent to the proximal stapled margin, two sales development representative cross sections and one half of the longitudinally bisected distal tip are submitted in cassette 1. Farrah Tyson 07/30/2013 08:45 AM End of Report [facility] 07/26/2013 7:59 EDT 07/27/2013 7:59 EDT us Scott Flanagan MD PATHOLOGY ORDERABLES Final Result [facility] [address] [place] [address] documented in this encounter Visit Diagnoses Not on filedocumented in this encounter Care Teams Intelligence Director Relationship Specialty Start Date End Date Unknown, Provider, PCP - General 07/28/13 07/29/13 documented as of this encounter
--- OUTSIDE RECORDS SUMMARY | 2024-11-30 17:52 | XMS_ITS | Encounter Summary ---
Author Organization [facility] Address [address] [place] [address] Care Team Providers Care Cans Vacuum Tester Name Role Phone Jalil King MD Primary Care Provider Rafael castillo Encounter Details Date Type Department Care Team (Late st Contact Info) Description 05/11/2024 Lab Requisition [facility] Pathology & Laboratory Medicine - [address] [phone] Outr Resulting Lab, Provider Social History Tobacco [...] Surface Ag Negative Negative 05/11/2024 22:39 EDT [facility] Blood VENOUS BLOOD / Unknown 05/11/2024 14:35 EDT 05/11/2024 21:29 EDT us Provider Outr Resulting Lab CHEMISTRY & BLOOD GA S ORDERABLES Final Result Performing Organization Address City/[facility] Co de Phone Number [facility] [address] [place] [address] * HEPATITIS C AB W REFLEX TO HCV RNA BY PCR (05/11/2024 14:35 EDT) Hep C Antibody Negative Negative 05/11/2024 23:07 EDT [facility] Blood VENOUS BLOOD / Unknown 05/11/2024 14:35 EDT 05/11/2024 21:29 EDT us Provider Outr Resulting Lab CHEMISTRY & BLOOD GA S ORDERABLES Final Result Performing Organization Address [facility] Co de Phone Number [facility] [address] [place], [place] [phone] documented in this encounter Visit Diagnoses Not on filedocumented in this encounter Care Teams Cans Vacuum Tester Relationship Specialty Start Date End Date Jalil King MD PCP - General 07/30/13 documented as of this encounter
--- OUTSIDE RECORDS SUMMARY | 2024-11-30 17:52 | XMS_ITS | Encounter Summary ---
Author Organization [facility] Address [address] [place] [address] Care Team Providers Care Parts Advisor Name Role Phone Jalil King MD Primary Care Provider Rafael castillo Encounter Details Date Type Department Care Team (Late st Contact Info) Description 05/11/2024 Lab Requisition [facility] Pathology & Laboratory Medicine - [address] [phone] Outr Resulting Lab, Provider Social History Tobacco [...] U Negative <1 ng/mL 05/14/2024 10:08 EDT [facility] Urine URINE / Unknown 05/11/2024 1 5:11 EDT 05/11/2024 21:29 EDT Narrative [facility] - 05/14/2024 10:08 EDT Testing performed by: [facility] [address] [place] [address], [address], [place] [address] Afterschool: Aris Maurer MD; CLIA # [id number] us Provider Outr Resulting Lab URINALYSIS ORDERABLE S Final Result [facility] [address] [facility], [address] [place] [address], [facility] [phone] documented in this encounter Visit Diagnoses Not on filedocumented in this encounter Care Teams Parts Advisor Relationship Specialty Start Date End Date Jalil King MD PCP - General 07/30/13 documented as of this encounter
--- OUTSIDE RECORDS SUMMARY | 2024-11-30 17:52 | XMS_ITS | Encounter Summary ---
Author Organization [facility] Address [address] [place] [address] Care Team Providers Care Dispatch Clerk Name Role Phone Jalil King MD Primary Care Provider Rafael castillo Encounter Details Date Type Department Care Team (Late st Contact Info) Description 05/14/2024 Lab Requisition [facility] Pathology & Laboratory Medicine - [address] [address] [address] [place], [place] [address] Encounter for other general examination Social History [...] System with Manual Evaluation 05/16/2024 12:38 EDT [facility] Specimen Adequacy Satisfactory for Evaluation - transformation zone component absent 05/16/2024 12:38 EDT [facility] General Categorization Negative for intraepithelial lesion or malignancy 05/16/2024 12:38 EDT [facility] Descriptive Diagnosis Shift in micheal present suggestive of bacterial vaginosis. 05/16/2024 12:38 EDT [facility] Attestation . 05/16/2024 12:38 EDT [facility] at 1238 Clinical History See below 05/16/20 12:38 EDT [facility] Performing Lab [facility] 05/16/2024 12:38 EDT [facility] Scanned Images 05/16/2024 12:38 EDT [facility] Pap Test CERVIX UTERI STRUCTURE / Unknown 05/11/2024 14:00 EDT 05/14/2024 14:36 EDT us Ofelia Heath CN PATHOLOGY ORDERABLES F inal Result [facility] [address] [place], [place] [address] documented in this encounter Visit Diagnoses Diagnosis Encounter for other general examination documented in this encounter Care Teams Dispatch Clerk Relationship Specialty Start Date End Date Jalil King MD PCP - General 07/30/13 documented as of this encounter
--- OUTSIDE RECORDS SUMMARY | 2024-11-30 17:52 | XMS_ITS | Encounter Summary ---
Author Organization [facility] Address [address] [place] [address] Care Team Providers Care Certified Income Tax Preparer Name Role Phone Jalil King MD Primary Care Provider Rafael castillo Encounter Details Date Type Department Care Team (Late st Contact Info) Description 05/11/2024 Lab Requisition [facility] Pathology & Laboratory Medicine - [address] [phone] Outr Resulting Lab, Provider Social History Tobacco [...] Ab Negative See Note 05/14/2024 12:11 EDT [facility] Comment:Absence of detectabl e Varicella [...] OGY ORDERABLES Final Result Performing Organization Address [facility] Co de Phone Number [facility] [address] [place], [place] [id number] * RUBELLA IGG ANTIBODY (05/11/2024 14:35 EDT) Rubella IgG Ab Negative See Note 05/14/2024 12:36 EDT [facility] Comment:Sample is considered negative for [...] S ORDERABLES Final Result Performing Organization Address [facility] Co de Phone Number [facility] [address] [place] [address] documented in this encounter Visit Diagnoses Not on filedocumented in this encounter Care Teams Certified Income Tax Preparer Relationship Specialty Start Date End Date Jalil King MD PCP - General 07/30/13 documented as of this encounter
[2024-11-30 18:51] VITALS: BP 135/86; PULSE 60; RESP 17; TEMP 37.2
[2024-11-30 18:54] VITALS: BP 135/86; PULSE 60; RESP 17; TEMP 37.2
--- NOTE | 2024-11-30 20:44 | W.PM.OBHPL1 ---
Date of service: 11/30/24 Time of Service: 20:44 Assessment and Plan Assessment and plan (1) : Status: Acute Assessment and plan: Admit to Center and routine admission labs. Comfort measures. Pain management per patient request. PPH risk low. Anticipate . (2) Maternal varicella, non-immune: Status: Acute Assessment and plan: vaccinate PP (3) Rubella non-immune status, antepartum: Status: Acute Assessment and plan: vaccinate PP (4) Marijuana smoker: Status: Acute Assessment and plan: UDS pending, anticipate +THC (5) Proteinuria affecting : Status: Acute OB-HPI Labor/Delivery History of Present Illness Reason for Visit: NST Chief Complaint: Uterine Contractions. [facility] Calculator Estimated Delivery Date Method Current WG Current Estimate 11/25/24 LMP (Certain) 40w 5d Other Estimates 11/27/24 Ultrasound #1 40w 3d Comments: 29y.o at 40w5d presents in early labor accompanied by FOB Aly. Labor started after membrane sweep around 11am. Membranes intact, no bloody show, +FM. significant for THC use in and gestational proteinuria, 24hr urine completed today at 324. GBS negative. Expecting a Baby Boy who they plan to circumcise. Varicela and rubella non immune- will vaccinate . History of Present Expected Delivery Route/Plan - CNM FOB - Aly Usman (his first child) BB- Julio bermudez, yes to circ Varicella and Rubella non-immune, vaccine post Would like epidural, interested in nitrous or sedation and tub [employer] - Qiana Nicholson, Empowered birthing classes GBS negative Specific Issues/Plan 1. vaping nicotine and marijuana, 5-Ps pos. UDS: +THC. @ 28 wks: +THC; POSC 1/2 +THC 2. cfDNA low risk male, Declined CF and SMA and AFP. 3. Migraine - magnesium recommended daily, [facility] to [facility] neurolog[facility]. 3a. Cyproheptadine 4 mg Q6 hrs escribed and B2 added to magnesium, discontinued cyproheptadine as she found it ineffective. 3b. F/up neuro appt 08/16/24- cyproheptadine 8 mg recommended, pt NOT taking 4. Borderline left hydronephrosis on anatomy survey (4 mm), repeat US at 28 wks- EFW 66%ile, LUIS 11, kidneys measure less than 4 mm. 5. Anemia - Hgb 9.9, iron recommended daily, 11/07 Hgb 12.6 6. Covid infection 11/08/24 7. gestational proteinuria of 324 dx 11/27/24 without evidence of gHTN or preE, ALT/AST wnl Review of Systems Unobtainable due to (due to labor status and patient in pain) PFSH All Active Problems (Updated 11/30/24 @ 21:01 by No Horn CNM) Proteinuria affecting (Acute) Marijuana smoker (Acute) Anemia (Chronic) Tobacco use disorder (Acute) vapes nicotine Migraine headache without aura (Acute) Rubella non-immune status, antepartum (Acute) Maternal varicella, non-immune (Acute) (Acute) Insomnia (Acute) Smoker (Acute) Asthma (Chronic) Migraine (Chronic) Medical History (Updated 11/30/24 @ 21:01 by No Horn CNM) Vaginal discharge No sense of smell FH: breast cancer in first degree relative Late 40s Contraception Iron deficiency anemia Disorder of nasal sinus Acquired absence of organ Verruca vulgaris Nicotine dependence Anxiety Proteinuria Pain in thoracic spine Urticaria Surgical History Hx of appendectomy Family History Mother Breast cancer late 40s Diabetes Cirrhosis, alcoholic Alcohol use disorder Paternal Grandfather Heart disease Maternal Grandmother Cancer Paternal Grandmother Cancer Father Migraine Environmental allergies No sense of smell Social History Smoking/Tobacco Use Status: Current every day Tobacco Type: e-cigarettes Smoking risk assessment performed?: Yes Alcohol Intake: never Drug use: Occasionally Substance use type: marijuana Sexually active: Yes Do you think of yourself as: straight/heterosexual Current gender identity: female Female Reproductive History Menstrual control method: vaginal ring History History 1 Para 0 Hx # Term Pregnancies 0 Multiple births 0 Hx # Pregnancies 0 Ectopic pregnancies 0 AB induced 0 Hx Number of Living Children 0 AB spontaneous 0 Meds Allergies and Home Medications Allergies Allergy/AdvReac Type Severity Reaction Status Date / Time enviornmental Allergy unspecified Uncoded 11/28/24 10:52 Home Medications ?Medication ?Instructions ?Recorded ?Confirmed ?Type albuterol sulfate 90 mcg/actuation 2 puff inhalation Q6H PRN 01/10/23 11/28/24 History aerosol inhaler vitamin B complex 1 cap PO DAILY #30 caps 09/06/24 11/28/24 Rx ferrous sulfate 325 mg (65 mg 325 mg PO DAILY #90 tabs 09/07/24 11/28/24 Rx iron) tablet vit 55-iron fum,bisgly 28 1 tab PO DAILY 30 days #1 tab 10/31/24 11/28/24 Rx mg iron-folic acid 1 mg chew tablet Exam Physical Exam Vital signs: Temp Pulse Resp BP 99.0 F 60 17 135/86 11/30/24 18:54 11/30/24 18:54 11/30/24 18:54 11/30/24 18:54 Vital Signs Reviewed: Yes Constitutional Constitutional: moderate distress (labor pain) Detailed Labor and Delivery Exam Dilation: 4 Effacement (%): 60 station: -2 Cervix position: posterior Banda Score: Cervical Points Exam 0 1 2 3 Dilation Closed 1-2cm 3-4 cm 5-6cm Effacement 0-30% 40-50% 60-70% 80% Consistency Firm Medium Soft Station -3 -2 -1,0 +1,+2 Position Posterior Mid Anterior BANDA Score(Cervical Ripeness Score): 4 Amniotic Membrane Status: Intact Contraction Frequency(min): 2-3 Contraction Duration(sec): 60 Contraction Intensity: Moderate Fetus A Heart Rate Baseline: 140 Monitor Accelerations: 15 X 15 Monitor Decelerations: None Variability: Moderate (6-25 BPM) Presentation: Vertex Categories: Category I HEENT Exam HEENT Exam: Normal Respiratory Exam Respiratory Exam: Normal Cardiovascular Exam Cardiovascular Exam: Normal Abdominal Exam Abdominal Exam: Normal Extremities Exam Extremities Exam: Normal Results Results Group Beta Strep: Negative Rubella Status: Nonimmune Varicella Immunity: Nonimmune Risk Assessment Risk for Shoulder Dystocia Historical/Initial OB: NEGATIVE FOR: Pelvic Abnormality, Pre- BMI>30, Previous Shoulder Dystocia or Previous Macrosomia 40 Weeks: POSTIVE FOR: Post Dates; NEGATIVE FOR: EFW> 4500 gms or Maternal Weight Gain >40lb Risk for Pre-Eclampsia Yes, if one or more: NEGATIVE FOR: Hx Pre-E/Gest HTN, Chronic HTN, Multiple Gestation, Pre-gestational DM, Renal Disease, Systemic Lupus or APA Syndrome Yes, if 2 or more: POSITIVE FOR: Nulliparity; NEGATIVE FOR: Age>= 35 yrs, >10yr btwn pregnancies, BMI>30, ethinicty, Mother/Sister w/ Pre-E or Previous IUGR Risk for Post- Hemorrhage Initial: NEGATIVE FOR: Multiple Gestation, Previous PPH, Known Clotting Deficiency, Grand Multiparity or Anticoagulation 40 Weeks: NEGATIVE FOR: Anemia, hgb<10, Low platelets (thrombocytopenia), Gestation HTN or Pre-E, Polyhydraminios or EFW>4500gms Risks Reviewed Risks Reviewed Upon Admission: Yes
[2024-11-30 20:54] LABS: HCT 40.3 % (36.0-46.0); HGB 12.9 g/dL (11.2-15.7); MCH 25.3 pg (27.0-33.0); MCV 79 fL (80-95); MPV 10.5 fL (8.0-11.0); Platelet Count 211 10^3/uL (130-400); RBC 5.09 10^6/uL (3.93-5.22); RDW 18.8 % (11.7-14.6); WBC 16.11 10^3/uL (4.4-10.8)
[2024-11-30 21:00] VITALS: BP 135/86; PULSE 60; RESP 17; TEMP 37.2
[2024-11-30] MEDS: Normal Saline Flush 10 ML SYR IVP (21:14)
[2024-11-30 21:33] VITALS: BP 134/97; PULSE 62
[2024-11-30 21:34] LABS: *AMPHETAMINES SCREEN URINE Negative (Negative); *BARBITURATES SCREEN URINE Negative (Negative); *BENZODIAZEPINES SCREEN URINE Negative (Negative); Cannabinoids THC Positive (Negative); Cocaine Screen,Urine Negative (Negative); METHADONE URINE SCREEN Negative (Negative); OPIATES URINE SCREEN Negative (Negative)
[2024-11-30 21:35] LABS: Tricyclic Antidepressants Negative (Negative)
[2024-11-30 21:37] VITALS: BP 132/78; PULSE 77; RESP 18; TEMP 36.3
--- NOTE | 2024-11-30 21:41 | W.PM.OBNL1 ---
Date of service: 11/30/24 Time of Service: 21:42 Pelvic Exam Dilation: 4 Effacement (%): 60 station: -2 Contractions Monitor Mode: External Contraction Frequency(min): 2-3 Contraction Duration(sec): 60 Intensity: Moderate Fetus A Monitor: Doppler Heart Rate Baseline: 160 Presentation: Vertex Categories: Category I FHR Rhythm: Regular Characteristics: Normal Accelerations: Present Decelerations: None Amniotic Membrane Status: Intact Assessment and Plan Assessment and plan (1) : Status: Acute Assessment and plan: A: Spontaneous labor at 40w5d Cat 1 FHT P: Intermittent Monitoring Pain Management with Nubain SVE when clinically indicated Objective Abnormal lab results 11/30/24 11/30/24 Range/Units 08:46 19:00 WBC 16.11 H (4.4-10.8) 10^3/uL MCV 79 L (80-95) fL MCH 25.3 L (27.0-33.0) pg RDW 18.8 H (11.7-14.6) % Ur THC Screen Positive A (Negative) Temp Pulse Resp BP 97.3 F L 77 18 132/78 11/30/24 21:37 11/30/24 21:37 11/30/24 21:37 11/30/24 21:37 Laboratory Results WBC 16.11 10^3/uL (4.4-10.8) H 11/30/24 08:46 RBC 5.09 10^6/uL (3.93-5.22) 11/30/24 08:46 Hgb 12.9 g/dL (11.2-15.7) 11/30/24 08:46 Hct 40.3 % (36.0-46.0) 11/30/24 08:46 MCV 79 fL (80-95) L 11/30/24 08:46 MCH 25.3 pg (27.0-33.0) L 11/30/24 08:46 MCHC 32.0 % (32.0-36.0) 11/30/24 08:46 RDW 18.8 % (11.7-14.6) H 11/30/24 08:46 Plt Count 211 10^3/uL (130-400) 11/30/24 08:46 MPV 10.5 fL (8.0-11.0) 11/30/24 08:46 Urine Opiates Screen Negative (Negative) 11/30/24 19:00 Urine Methadone Screen Negative (Negative) 11/30/24 19:00 Ur Barbiturates Screen Negative (Negative) 11/30/24 19:00 Ur Tricyclics Screen Negative (Negative) 11/30/24 19:00 Ur Amphetamines Screen Negative (Negative) 11/30/24 19:00 U Benzodiazepines Scrn Negative (Negative) 11/30/24 19:00 Urine Cocaine Screen Negative (Negative) 11/30/24 19:00 Ur THC Screen Positive (Negative) A 11/30/24 19:00 ABO/Rh A Positive 11/30/24 08:46 Antibody Screen NEGATIVE 11/30/24 08:46 Vital Signs Reviewed: Yes Subjective Interval history since last seen: Contraction frequency increasing and patient requesting pain management. Has been using N202 in tub and now requesting IV pain management. Recommended Nubain IVP. SVE unchanged. Patient assisted out of tub and to bed. Alisa Orozco) recently arrived and supportive. Results Hemoglobin/Hematocrit: Hgb 12.9 g/dL (11.2-15.7) 11/30/24 08:46 Hct 40.3 % (36.0-46.0) 11/30/24 08:46 Abnormal Lab Findings: Abnormal Labs 11/30/24 11/30/24 08:46 19:00 WBC 16.11 H MCV 79 L MCH 25.3 L RDW 18.8 H Ur THC Screen Positive A
[2024-11-30 23:29] VITALS: BP 131/84; PULSE 112; RESP 16; TEMP 36.6
[2024-12-01] VITALS (23 sets, daily range): BP systolic 105–131; BP diastolic 63–77; PULSE 64–222; RESP 16–18; TEMP 36.5–37.2; O2SAT 81–99
[2024-12-01] MEDS: Normal Saline Flush 10 ML SYR IVP (00:23)
--- NOTE | 2024-12-01 00:35 | W.PM.OBNL1 ---
Date of service: 12/01/24 Time of Service: 00:36 Contractions Contraction Frequency(min): 2 Contraction Duration(sec): 60 Intensity: Moderate/Strong Fetus A Monitor: Doppler Heart Rate Baseline: 140 Presentation: Vertex Categories: Category I FHR Rhythm: Regular Characteristics: Normal Accelerations: Absent Decelerations: None Amniotic Membrane Status: Intact Assessment and Plan Assessment and plan (1) : Status: Acute Assessment and plan: Stadol 2mg IV given about 1230am Recommended hands and knee position or side lying to rest Reassess 0400 with SVE Objective Abnormal lab results 11/30/24 11/30/24 Range/Units 08:46 19:00 WBC 16.11 H (4.4-10.8) 10^3/uL MCV 79 L (80-95) fL MCH 25.3 L (27.0-33.0) pg RDW 18.8 H (11.7-14.6) % Ur THC Screen Positive A (Negative) Temp Pulse Resp BP 97.9 F 112 H 16 131/84 11/30/24 23:29 11/30/24 23:29 11/30/24 23:29 11/30/24 23:29 Laboratory Results WBC 16.11 10^3/uL (4.4-10.8) H 11/30/24 08:46 RBC 5.09 10^6/uL (3.93-5.22) 11/30/24 08:46 Hgb 12.9 g/dL (11.2-15.7) 11/30/24 08:46 Hct 40.3 % (36.0-46.0) 11/30/24 08:46 MCV 79 fL (80-95) L 11/30/24 08:46 MCH 25.3 pg (27.0-33.0) L 11/30/24 08:46 MCHC 32.0 % (32.0-36.0) 11/30/24 08:46 RDW 18.8 % (11.7-14.6) H 11/30/24 08:46 Plt Count 211 10^3/uL (130-400) 11/30/24 08:46 MPV 10.5 fL (8.0-11.0) 11/30/24 08:46 Urine Opiates Screen Negative (Negative) 11/30/24 19:00 Urine Methadone Screen Negative (Negative) 11/30/24 19:00 Ur Barbiturates Screen Negative (Negative) 11/30/24 19:00 Ur Tricyclics Screen Negative (Negative) 11/30/24 19:00 Ur Amphetamines Screen Negative (Negative) 11/30/24 19:00 U Benzodiazepines Scrn Negative (Negative) 11/30/24 19:00 Urine Cocaine Screen Negative (Negative) 11/30/24 19:00 Ur THC Screen Positive (Negative) A 11/30/24 19:00 ABO/Rh A Positive 11/30/24 08:46 Antibody Screen NEGATIVE 11/30/24 08:46 Subjective Patient Reports: No new Complaints Interval history since last seen: Patient has been labor in a laying down position and sitting at side of bed. Has been resistant to other position change suggestions due to pain in her back. Continuing in using n202 and interested in another dose of IV medications, Stadol recommended and given. Pt has been up to bathroom. I recommended a recheck of cervix in max 4 hours to check progress and if lack of progress I recommended we revisit epidural pain management which she has stated she is not interested in. Pt has had minimal emesis, good PO water and juice intake, no food since 1800. Results Hemoglobin/Hematocrit: Hgb 12.9 g/dL (11.2-15.7) 11/30/24 08:46 Hct 40.3 % (36.0-46.0) 11/30/24 08:46 Abnormal Lab Findings: Abnormal Labs 11/30/24 11/30/24 08:46 19:00 WBC 16.11 H MCV 79 L MCH 25.3 L RDW 18.8 H Ur THC Screen Positive A
--- NOTE | 2024-12-01 03:16 | W.PM.OBNL1 ---
Date of service: 12/01/24 Time of Service: 03:16 Pelvic Exam Dilation: 9 Effacement (%): 100 station: +2 Position: OA Consistency: soft Vaginal Exam Presentation: Vertex Comments: BBOW Contractions Contraction Frequency(min): 1-2 Contraction Duration(sec): 60 Intensity: Strong Fetus A Monitor: Doppler Heart Rate Baseline: 140 Categories: Category I FHR Rhythm: Regular Characteristics: Normal Accelerations: Absent Decelerations: None Amniotic Membrane Status: Intact Assessment and Plan Assessment and plan (1) : Status: Acute Assessment and plan: 9cm with urge to push anticipated Cat 1 FHT Objective Abnormal lab results 11/30/24 11/30/24 Range/Units 08:46 19:00 WBC 16.11 H (4.4-10.8) 10^3/uL MCV 79 L (80-95) fL MCH 25.3 L (27.0-33.0) pg RDW 18.8 H (11.7-14.6) % Ur THC Screen Positive A (Negative) Temp Pulse Resp BP 97.9 F 110 H 16 131/67 11/30/24 23:29 12/01/24 03:06 11/30/24 23:29 12/01/24 03:06 Laboratory Results WBC 16.11 10^3/uL (4.4-10.8) H 11/30/24 08:46 RBC 5.09 10^6/uL (3.93-5.22) 11/30/24 08:46 Hgb 12.9 g/dL (11.2-15.7) 11/30/24 08:46 Hct 40.3 % (36.0-46.0) 11/30/24 08:46 MCV 79 fL (80-95) L 11/30/24 08:46 MCH 25.3 pg (27.0-33.0) L 11/30/24 08:46 MCHC 32.0 % (32.0-36.0) 11/30/24 08:46 RDW 18.8 % (11.7-14.6) H 11/30/24 08:46 Plt Count 211 10^3/uL (130-400) 11/30/24 08:46 MPV 10.5 fL (8.0-11.0) 11/30/24 08:46 Urine Opiates Screen Negative (Negative) 11/30/24 19:00 Urine Methadone Screen Negative (Negative) 11/30/24 19:00 Ur Barbiturates Screen Negative (Negative) 11/30/24 19:00 Ur Tricyclics Screen Negative (Negative) 11/30/24 19:00 Ur Amphetamines Screen Negative (Negative) 11/30/24 19:00 U Benzodiazepines Scrn Negative (Negative) 11/30/24 19:00 Urine Cocaine Screen Negative (Negative) 11/30/24 19:00 Ur THC Screen Positive (Negative) A 11/30/24 19:00 ABO/Rh A Positive 11/30/24 08:46 Antibody Screen NEGATIVE 11/30/24 08:46 Subjective Interval history since last seen: Feeling pressure to push. On hands and knees in bed. SVE 9cm/100/+2 with BBOW Results Hemoglobin/Hematocrit: Hgb 12.9 g/dL (11.2-15.7) 11/30/24 08:46 Hct 40.3 % (36.0-46.0) 11/30/24 08:46 Abnormal Lab Findings: Abnormal Labs 11/30/24 11/30/24 08:46 19:00 WBC 16.11 H MCV 79 L MCH 25.3 L RDW 18.8 H Ur THC Screen Positive A
--- NOTE | 2024-12-01 03:19 | OBVDS_ITS ---
Date of service: 12/01/24 Time of Service: 03:19 OB Labor/ Delivery Information Baby A Delivery Delivery Method: Spontaneaous Presentation: Vertex Cephalic Position: Vertex Vertex Position: Right Occipital Anterior Cord Description-Baby A: 3 Vessels Amniotic Fluid: Meconium (light) Estimated Blood Loss: 150 Delivery Outcome: Liveborn Complications: none Providers Nurse Menagerie Superintendent: No Horn Nurse: Patience Miguel Nurse: Annette Diallo Labor/Delivery Information Number of Babies in Womb: 1 Steroids Given: None Reason Steroids Not Administered: N/A Group Beta Strep: Negative Antibiotics Administered: No Rubella Status: Nonimmune Blood Type: A+ Varicella Immunity: Nonimmune Maternal Complications: None Shoulder Dystocia: No Note: FHTs 140s-160s via Doppler during first stage of labor. FHTs 140s in second stage. She progressed to full dilation and began pushing. Second stage huddle was done. Spontaneous delivery of male infant delivered in JEAN position. Baby was placed on mother's abdomen and dried and stimulated. Spontaneous cry. Cord was clamped and cut by Aly . The placenta delivered spontaneously and appears to by intact with a three vessel cord. Pitocin was administered via IV, successful delivery of the placenta. The perineum was inspected and intact with an unrepaired left labial shear and right periclitoral shear also unrepaired. Lacerations hemostatic and bleeding stable prior to exiting the patient's room. The baby did breastfeed. After delivery, Mother and baby [place] father of the baby were stable and bonding well in the delivery room and there were no complications. Stages of Labor Onset of Labor Date: 11/30/24 Complete Dilatation Date: 12/01/24 Complete Dilatation Time: 02:38 ROM Baby A: 12/01/24 ROM Baby A: 02:37 ROM Total Time- Baby A: [id number] Infant Delivery Date-Baby A: 12/01/24 Delivery Time-Baby A: 02:45 Labor Stage 2 Duration: 7 minutes Placenta Delivery Date-Baby A: 12/01/24 Placenta Delivery Time-Baby A: 02:58 Labor-Stage 3 Duration: 13 minutes Placenta Cultured: No Placenta Status: Delivered Baby A Gender: Male Gestational Status: Term (39-41.6 wks) Gestational Age in Weeks/Days: 40 Weeks and 6 Days Score-1 Minute Interval(Baby A) Heart Rate-1 minute: 100 BPM or Greater Respiratory Effort- 1 minute: Spontaneous/Strong Cry Muscle Tone-1 minute: Active Movement Reflex Response-1 minute: Prompt Response Color-1 minute: Pallor or Cyanosis Score-5 Minute Interval(Baby A) Heart Rate- 5 minute: 100 BPM or Greater Respiratory Effort-5 minute: Spontaneous/Strong Cry Muscle Tone-5 minute: Active Movement Reflex Response-5 minute: Prompt Response Color-5 minute: Bluish Hands or Feet Shoulder Dystocia Delivery Times Date of Delivery of Head: 12/01/24 Time of Delivery of the Head: 02:45 Head to Body Delivery Interval(minutes): .5 Verify No Fundal Pressure Applied Fundal Pressure: No Pressure Applied Arm Under Sympisis Arm Under Symphisis: Left
[2024-12-01] MEDS: Ibuprofen 600 MG TAB PO ×4 (04:27→23:45)
[2024-12-01] MEDS: Acetaminophen 325 MG TAB 650 MG PO ×5 (04:27→23:45)
[2024-12-01] MEDS: Docusate Sodium 100 MG CAP PO (04:28)
[2024-12-01] MEDS: Lidocaine 2% Jelly 6 ML SYR TP (15:02)
--- NOTE | 2024-12-01 15:27 | OBPPV_ITS ---
Date of service: 12/01/24 Time of Service: 15:28 Assessment and Plan Assessment and plan (1) care and examination of lactating mother: Status: Acute Assessment and plan: Caring for baby independently. Pain is managed well with oral analgesics. Voiding without difficulty. fair, motivated to improve latch. A - stable mother and baby , day 1 P - Some teaching done, may be interested in discharge tomorrow, will reevaluate in morning. Subjective Subjective Interval history: No sleep since delivery, have been too excited about baby and have had visitors throughout the day. No complaints of abdominal pain, experiencing burning at labial lacerations which has made her more hesistant to urinate. Lidocaine jelly had not been given. Bleeding stable without clots. Took a shower this morning. Impressed with her colostrum output and has already hand expressed and given baby breast milk via spoon if he is sleepy at breast. Patient comments: No complaints, Pain well controlled, Tolerating diet and Flatus present Patient's Mood: calm [place] baby status: Doing well, Nursing well, Rooming in and Strong Bonding Observed feeding status: Exclusively breast feeding and Cup Feeding Exam Physical Exam Vital signs: Temp Pulse Resp BP Pulse Ox 99.0 F 94 H 18 105/63 99 12/01/24 07:42 12/01/24 07:42 12/01/24 07:42 12/01/24 07:42 12/01/24 07:42 Constitutional Constitutional: no acute distress HEENT Exam HEENT Exam: Normal Breast Exam Bilateral: Breast Exam: Normal and Soft Nipple Exam: Normal and Uninjured Fundal Exam Fundus: Below Umbilicus and Firm Exam Patient deferred: perineal exam Perineum: Intact External: Present vulvar tenderness Comments: lochia moderate rubra without clots Psychiatric Exam Psychiatric Exam: Normal Results Hemoglobin/Hematocrit: Hgb 12.9 g/dL (11.2-15.7) 11/30/24 08:46 Hct 40.3 % (36.0-46.0) 11/30/24 08:46 Abnormal Lab Findings: Abnormal Labs 11/30/24 11/30/24 08:46 19:00 WBC 16.11 H MCV 79 L MCH 25.3 L RDW 18.8 H Ur THC Screen Positive A
[2024-12-02] MEDS: Lidocaine 2% Jelly 6 ML SYR TP ×2 (00:12→11:56)
[2024-12-02 00:13] VITALS: BP 110/60; PULSE 88; RESP 20; TEMP 37
[2024-12-02] MEDS: Acetaminophen 325 MG TAB 650 MG PO ×2 (08:32→13:39)
[2024-12-02] MEDS: Ibuprofen 600 MG TAB PO (08:32)
[2024-12-02 08:59] VITALS: BP 127/83; PULSE 69; RESP 18; TEMP 37.1; O2SAT 98
--- NOTE | 2024-12-02 10:12 | W.PM.OBPNV1 ---
Date of service: 12/02/24 Time of Service: 10:12 Assessment and Plan Assessment and plan (1) care and examination of lactating mother: Status: Acute Assessment and plan: Caring for baby independently. Pain is managed well with oral analgesics. Voiding without difficulty. well. A - stable mother and baby , Post day 2 P - Discharge to home. Routine post instructions. [facility] 2&6wk PP visit. Subjective Subjective Interval history: Accompanied by JOHN Lu Body: lacerations are sore, using lidocaine jelly and taylor bottle Pain: taking PO NSAIDs Breast: nipples tender non injured, infant latching well, + colostrum Sleep: slept overnight Voiding/BM: no BM yet, voiding, taking Colace Review: intense glad its over Patient comments: No complaints Patient's Mood: calm, pleasant [place] baby status: Doing well, Nursing well and Strong Bonding Observed feeding status: Exclusively breast feeding Exam Physical Exam Vital signs: Temp Pulse Resp BP Pulse Ox 98.8 F 69 18 127/83 98 12/02/24 08:59 12/02/24 08:59 12/02/24 08:59 12/02/24 08:59 12/02/24 08:59 Vital Signs Reviewed: Yes Constitutional Constitutional: no acute distress HEENT Exam HEENT Exam: Normal Breast Exam Bilateral: Breast Exam: Normal and Soft Nipple Exam: Normal and Uninjured Respiratory Exam Respiratory Exam: Normal Cardiovascular Exam Cardiovascular Exam: Normal Fundal Exam Fundus: Below Umbilicus and Firm Exam Patient deferred: perineal exam Perineum: Intact External: Present vulvar tenderness Comments: lochia moderate rubra Psychiatric Exam Psychiatric Exam: Normal Results Hemoglobin/Hematocrit: Hgb 12.9 g/dL (11.2-15.7) 11/30/24 08:46 Hct 40.3 % (36.0-46.0) 11/30/24 08:46 Abnormal Lab Findings: Abnormal Labs 11/30/24 11/30/24 08:46 19:00 WBC 16.11 H MCV 79 L MCH 25.3 L RDW 18.8 H Ur THC Screen Positive A
--- NOTE | 2024-12-02 10:19 | W.PM.OBDISCH ---
Date of service: 12/02/24 Time of Service: 10:19 DS: Diagnosis Discharge Diagnosis (1) care and examination of lactating mother: Status: Acute Asessment and Plan: Caring for baby independently. Pain is managed well with oral analgesics. Voiding without difficulty. well. A - stable mother and baby , Post day 2, needs vaccinations prior to discharge P - Discharge to home. Routine post instructions. [facility] Discharge Plan Disposition Patient Disposition: Home Condition: Good Discharge Details Reason For Visit: Term Labor Admit Date/Time: 11/30/24 20:20 Admit Provider: No Horn Attending Provider: No Horn Primary Care Provider: Caitie Patterson [facility] Course Hospital Course: spotaneous labor leading to of male term Home Meds and New Rx's Prescriptions: No Action PNV 55-iron fum,b-g-folic acid 28 mg iron -1 mg tablet,chewable 1 tab PO DAILY 30 Days Qty: 1 6RF Rx Instructions: may take with food >= 2 hrs before/after zinc/calcium-containing/dairy products and/or antacids albuterol sulfate 90 mcg/actuation HFA aerosol inhaler 2 puff inhalation Q6H PRN vitamin B complex Capsule 1 cap PO DAILY Qty: 30 2RF ferrous sulfate 325 mg (65 mg iron) tablet 325 mg PO DAILY Qty: 90 4RF docusate sodium [Colace] 100 mg capsule 100 mg PO BID 30 Days Qty: 60 0RF ibuprofen 600 mg tablet 600 mg PO QID PRN (Reason: pain) 14 Days Qty: 60 0RF Discharge Instructions Instructions: How to Do a Sitz Bath, Normal Bleeding After Having a Baby, Exercises, Taking Care of Yourself After You Have a Baby Stand Alone Forms: BC Post Vaginal Deliver Activity:: Activity as Tolerated Equipment/Supplies:: No Equipment Needed Diet:: Normal Diet Discharge Orders Discharge Orders: Discharge Order (Routine); Ordered 12/02/24 Ordered By: No Horn OB:DS Summary Summary Vaginal Delivery Method: Spontaneaous Episiotomy Description: None Laceration Description: Other (labial and periclitoral) Laceration Extension: N/A Contraception Discussed Contraception Discussed: Yes Contraceptive Plan: IUD (interval IUD at 8wkPP), Infant Gender-Baby A: Male weight: 8 lb 4.806 oz Status at Discharge Functional status at discharge: independent ambulation Overall status at discharge: patient is progressing back to baseline Mental Status: mental status grossly normal Speech and Movement: speech and movement normal Mood: congruent mood Affect: normal affect Quality:SDOH Health Related Social Needs: No Data to Display Exam Physical Exam Vital signs: Temp Pulse Resp BP Pulse Ox 98.8 F 69 18 127/83 98 12/02/24 08:59 12/02/24 08:59 12/02/24 08:59 12/02/24 08:59 12/02/24 08:59 Constitutional Constitutional: no acute distress HEENT Exam HEENT Exam: Normal Breast Exam Bilateral: Breast Exam: Normal and Soft Respiratory Exam Respiratory Exam: Normal Cardiovascular Exam Cardiovascular Exam: Normal Fundal Exam Fundus: Below Umbilicus and Firm Exam Patient deferred: perineal exam Perineum: Intact External: Present vulvar tenderness Psychiatric Exam Psychiatric Exam: Normal PFSH All Active Problems (Updated 12/01/24 @ 03:26 by No Horn CNM) care and examination of lactating mother (Acute) Marijuana smoker (Acute) Anemia (Chronic) Tobacco use disorder (Acute) vapes nicotine Migraine headache without aura (Acute) Rubella non-immune status, antepartum (Acute) Maternal varicella, non-immune (Acute) Insomnia (Acute) Smoker (Acute) Asthma (Chronic) Migraine (Chronic) Medical History (Updated 12/01/24 @ 03:26 by No Horn CNM) Proteinuria affecting Vaginal discharge No sense of smell FH: breast cancer in first degree relative Late 40s Contraception Iron deficiency anemia Disorder of nasal sinus Acquired absence of organ Verruca vulgaris Nicotine dependence Anxiety Proteinuria Pain in thoracic spine Urticaria Surgical History Hx of appendectomy Family History Mother Breast cancer late 40s Diabetes Cirrhosis, alcoholic Alcohol use disorder Paternal Grandfather Heart disease Maternal Grandmother Cancer Paternal Grandmother Cancer Father Migraine Environmental allergies No sense of smell Social History Smoking/Tobacco Use Status: Current every day Tobacco Type: e-cigarettes Smoking risk assessment performed?: Yes Alcohol Intake: never Drug use: Occasionally Substance use type: marijuana Sexually active: Yes Do you think of yourself as: straight/heterosexual Current gender identity: female Female Reproductive History Menstrual control method: vaginal ring History History 1 Para 0 Hx # Term Pregnancies 0 Multiple births 0 Hx # Pregnancies 0 Ectopic pregnancies 0 AB induced 0 Hx Number of Living Children 0 AB spontaneous 0 DS: Data Vitals/I&O Vitals and I&O: Vital Signs Temperature 98.8 F 12/02/24 08:59 Temperature Source Oral 12/02/24 08:59 Pulse 69 12/02/24 08:59 Pulse Rhythm Regular 12/02/24 08:59 Respiratory Rate 18 12/02/24 08:59 Respiratory Depth Normal 12/01/24 20:41 Blood Pressure 127/83 12/02/24 08:59 Blood Pressure Mean 97 12/02/24 08:59 Pulse Oximetry 98 12/02/24 08:59 Oxygen Delivery Method Room Air 11/30/24 21:00 Oxygen Flow Rate 0 11/30/24 21:00 Comment Monitor error 12/01/24 03:17 Intake & Output 12/01/24 12/01/24 12/02/24 11:59 23:59 11:59 Output Total 150 / 400 250 / 400 350 / 350 Balance -150 / -400 -250 / -400 -350 / -350 Output: Urine 150 / 400 250 / 400 350 / 350 Other: Urine Color Straw Urine Appearance Clear Urine Odor None Comment Pt stated she voided alot more than before, said the lidocaine helped. denied knowing she was supposed to use the hat to measure. Reminded her to use the hat next time as she did not completely empty her bladder.
[2024-12-02] MEDS: Docusate Sodium 100 MG CAP PO (11:56)
[2024-12-03 11:33] LABS: Fentanyl Scr w/Rfx Confirm Negative ng/mL (<1)
== END 2024-12-02 14:00 | disposition home or self-care (01) | DRG 806 ==
LOC: BCD 20:37 → OBS 20:37
PROVIDERS: Admitting Provider Advanced Practice Midwife; PCP Nurse Practitioner Family; Visit Provider Advanced Practice Midwife
DX: O12.14 Gestational proteinuria, complicating childbirth (principal); O99.354 Diseases of the nervous system complicating childbirth; Z37.0 Single live birth; F12.90 Cannabis use, unspecified, uncomplicated; O48.0 Post-term pregnancy; Z3A.40 40 weeks gestation of pregnancy; O99.334 Smoking (tobacco) complicating childbirth; F17.210 Nicotine dependence, cigarettes, uncomplicated; O99.324 Drug use complicating childbirth; O77.0 Labor and delivery complicated by meconium in amniotic fluid; O99.02 Anemia complicating childbirth; O99.52 Diseases of the respiratory system complicating childbirth; O99.344 Other mental disorders complicating childbirth; F41.9 Anxiety disorder, unspecified; D50.9 Iron deficiency anemia, unspecified; G43.009 Migraine without aura, not intractable, without status migrainosus; G47.00 Insomnia, unspecified; J45.909 Unspecified asthma, uncomplicated; O70.0 First degree perineal laceration during delivery
CPT/HCPCS: 80307; 85027; 86850; 86900; 86901; J0595; J2300

== ENCOUNTER 2025-03-10 08:49 | Emergency (ER) | payer MEDICAID, SELFPAY ==
[2025-03-10 08:53] VITALS: BP 163/134; PULSE 86; RESP 18; TEMP 36.4; O2SAT 93
[2025-03-10 08:56] VITALS: BP 163/134; PULSE 86; RESP 18; TEMP 36.4; O2SAT 93
--- NOTE | 2025-03-10 09:03 | DI.RAD_ITS ---
Exam(s) XR CHEST 2V PA LATERAL EXAM: XR CHEST 2V PA LATERAL CLINICAL HISTORY: Cough, SOB TECHNIQUE: 2D digital imaging was performed of the chest. Two images were obtained. PA and lateral views were obtained. COMPARISON: CR CHEST 2 VIEWS PA,LAT from 11/25/2014 FINDINGS: MEDIASTINUM: Normal. HEART: Normal. PULMONARY VASCULATURE: Normal. LUNGS: Clear. PLEURAL SPACE: No pleural effusion or pneumothorax. BONE:Within normal limits for the patient's age. OTHER FINDINGS:Normal. IMPRESSION: No acute pulmonary findings. DATA REPOSITORY: RADIATION DOSE DELIVERED:
--- NOTE | 2025-03-10 09:04 | ED.GENADUL_ITS ---
Discharge Plan Disposition Patient Disposition: Home Condition: Stable Discharge Details Clinical Impression: Asthma exacerbation, URI (upper respiratory infection) Primary Care Provider: Caitie Patterson ED Provider: Jasmina Martínez Home Meds and New Rx's Prescriptions: New azithromycin 250 mg tablet See Rx Instructions .ROUTE .COMPLEX 6 Days Qty: 6 0RF Rx Instructions: For 250 mg dose pack: take 500 mg today (day 1), then 250 mg for 4 days (days 2-5) prednisone 50 mg tablet 50 mg PO DAILY 5 Days Qty: 5 0RF Rx Instructions: Take 1 tablet daily for the next 5 days albuterol sulfate 90 mcg/actuation HFA aerosol inhaler 2 puff IH QID PRN (Reason: shortness of breath or wheezing) Qty: 8 0RF Rx Instructions: Take 1 to 2 puffs every 4-6 hours as needed for shortness of breath, cough or wheezing No Action albuterol sulfate 90 mcg/actuation HFA aerosol inhaler 2 puff inhalation Q6H PRN vitamin B complex Capsule 1 cap PO DAILY Qty: 30 2RF ParaGard T 380A 380 square mm intrauterine device 1 device intrauterine ONCE Rx Instructions: as a single dose ketoconazole 2 % cream 1 applic topical DAILY PRN (Reason: dermatis) 14 Days Qty: 15 0RF Discharge Instructions Instructions: Asthma, Adult ED, Upper Respiratory Infection ED Additional Instructions: Chest x-ray is negative for pneumonia however, due to the length of your symptoms we will send in a azithromycin Z-Rell for you to please take this as prescribed. The pharmacy on file. Please take this with yogurt or a probiotic. Please take prednisone for the next 5 days as directed. A new inhaler was also sent to the pharmacy on file. Please take 1 or 2 puffs every 4-6 hours as directed. Please consider quitting smoking. Follow up with primary care provider in 3-5 days. Return to ED sooner if any worsening or concerns. You may take phyj-ceu-[id number] cough and cold medicines as directed. Thank you for allowing us to care for you today. Referrals: Caitie Patterson [Primary Care Provider] - 3 days Discharge Data Discharge Date/Time-TO BE ENTERED AT DEPARTURE: 03/10/25 10:55 HPI General Mode of arrival: ambulatory . Date/Time Provider Initiated Documentation: 03/10/25 09:00 . Limitations to Documentation: no limitations . Information obtained by: patient, RN notes reviewed and old records reviewed . HPI Narrative: 30 year old female presents to the ED with CC of asthma exacerbation, cough, wheezing, SOB which she reports has gotten worse over last 24 hours. She reports URI type symptoms x 1 month, got better, now worse again. She does have scattered expiratory wheezes on auscultation initially. She has a congested cough. She has been using albuterol inhaler she did run out this morning. She is hypertensive upon arrival, O2 sat 93% on room air. Past medical history includes asthma, anemia, Related Data Home Medications ?Medication ?Instructions ?Recorded ?Confirmed albuterol sulfate 90 mcg/actuation 2 puff inhalation Q6H PRN 01/10/23 03/10/25 aerosol inhaler vitamin B complex 1 cap PO DAILY #30 caps 09/06/24 03/10/25 copper 380 square mm intrauterine 1 device intrauterine ONCE 01/29/25 03/10/25 device (ParaGard T 380A) ketoconazole 2 % topical cream 1 applic topical DAILY PRN 03/04/25 03/10/25 dermatis 2 weeks #15 grams albuterol sulfate 90 mcg/actuation 2 puff inhalation QID PRN 03/10/25 aerosol inhaler shortness of breath or wheezing #8 grams azithromycin 250 mg tablet See Rx Instructions PO .COMPLEX 6 03/10/25 days #6 tabs prednisone 50 mg tablet 50 mg PO DAILY Inflammation 5 days 03/10/25 #5 tabs Previous Rx's ?Medication ?Instructions ?Recorded vitamin B complex 1 cap PO DAILY #30 caps 09/06/24 ketoconazole 2 % topical cream 1 applic topical DAILY PRN 03/04/25 dermatis 2 weeks #15 grams albuterol sulfate 90 mcg/actuation 2 puff inhalation QID PRN 03/10/25 aerosol inhaler shortness of breath or wheezing #8 grams azithromycin 250 mg tablet See Rx Instructions PO .COMPLEX 6 03/10/25 days #6 tabs prednisone 50 mg tablet 50 mg PO DAILY Inflammation 5 days 03/10/25 #5 tabs Allergies Allergy/AdvReac Type Severity Reaction Status Date / Time enviornmental Allergy unspecified Uncoded 03/10/25 08:56 General Stated Complaint: RespSymp LIS: 3 Review of Systems All systems reviewed & are unremarkable except as noted in HPI and below Cardiovascular Cardiovascular: Reports dyspnea Respiratory Respiratory: Reports chest congestion, Reports cough, Reports dyspnea and Reports wheezing Allergic/Immunologic Allergic/Immunologic: Reports wheezing Exam Narrative Exam Narrative: Constitutional: Alert and oriented x3. Appears stated age. Normal body habitus. Head: Normocephalic, no trauma. Eyes: Pupils PERRL, Red reflex noted, EOM's intact. Eyelids symmetrical without lesions, discharge, or swelling. ENT: Bilateral TM's WNL, External ear normal to inspection, no mastoid TTP, swelling, or erythema, Nasal turbinates WNL, no nasal discharge. Normal dentition, Posterior pharynx WNL, no exudate. Chest: RRR, Normal S1, S2, distal pulses intact. Resp: Scattered expiratory wheezes bilaterally in the upper lobes, diminished in the lower Abdomen: Soft, non-distended, Normoactive bowel sounds all 4 quads. Musculoskeletal: Normal gait, Moves all 4 extremities without difficulty. Skin: No suspicious rashes or lesions. Capillary refill less than 2 sec. Neurologic: Cranial nerves II-XII intact. Alert and oriented x 3. Motor: No deficits noted. Sensory: Intact bilaterally all 4 extremities. Hematologic/Lymphatic: No ecchymosis, no lymphadenopathy. Course Vital Signs Vital signs: Vital Signs Temperature 36.4 C 03/10/25 08:53 Pulse 86 03/10/25 08:53 Respiratory Rate 18 03/10/25 08:53 Blood Pressure 163/134 H 03/10/25 08:53 Pulse Oximetry 93 03/10/25 08:53 Temperature 36.4 C 03/10/25 08:56 Temperature Source Tympanic 03/10/25 08:56 Pulse 86 03/10/25 08:56 Respiratory Rate 18 03/10/25 08:56 Blood Pressure 163/134 H 03/10/25 08:56 Pulse Oximetry 93 03/10/25 08:56 Oxygen Delivery Method Room Air 03/10/25 08:56 Oxygen Flow Rate 0 03/10/25 08:56 Pain Level 8 03/10/25 08:56 Medical Decision Making 30 year old female presents to the ED with CC of asthma exacerbation, cough, wheezing, SOB which she reports has gotten worse over last 24 hours. She reports URI type symptoms x 1 month, got better, now worse again. She does have scattered expiratory wheezes on auscultation initially. She has a congested cough. She has been using albuterol inhaler she did run out this morning. She is hypertensive upon arrival, O2 sat 93% on room air. Past medical history includes asthma, anemia, DuoNeb ordered, 60 mg prednisone p.o., chest x-ray urine Preg and Fluvid swab. 0958: On reevaluation wheezing has decreased, there is some rhonchi bilaterally. Patient reports that she feels much better. Will give 1 more albuterol nebulizer. Negative COVID flu RSV, chest x-ray shows no acute abnormality. Due to patient's length of symptoms I will send her prescription prescription for azithromycin Z-Rell, prednisone x 5 days and a new albuterol inhaler. 1047: On reevaluation patient has clear lung sounds bilaterally no more wheezing no rhonchi. This text was generated using Needishation system, please disregard any oddities of phrase or misspellings. Lab Data Lab results reviewed: Yes I reviewed the patient's lab results. Labs: Laboratory Tests Range/Units 03/10/25 09:57 COVID-19 Source Nasopharynx SARS-CoV-2 (PCR) (Negative) Negative Influenza Type A (PCR) (Negative) Negative Influenza Type B (PCR) (Negative) Negative RSV (PCR) (Negative) Negative Quality:SDOH Health Related Social Needs: No Data to Display PFSH All Active Problems (Updated 03/10/25 @ 10:30 by Jasmina Martínez NP) URI (upper respiratory infection) (Acute) Asthma exacerbation (Acute) IUD check up (Acute) Encounter for insertion of ParaGard IUD (Acute) care and examination of lactating mother (Acute) Marijuana smoker (Acute) Tobacco use disorder (Acute) vapes nicotine Migraine headache without aura (Acute) Rubella non-immune status, antepartum (Acute) Maternal varicella, non-immune (Acute) Insomnia (Acute) Smoker (Acute) Asthma (Chronic) Migraine (Chronic) Medical History Anemia Proteinuria affecting Vaginal discharge No sense of smell FH: breast cancer in first degree relative Late 40s Contraception Iron deficiency anemia Disorder of nasal sinus Acquired absence of organ Verruca vulgaris Nicotine dependence Anxiety Proteinuria Pain in thoracic spine Urticaria Surgical History Hx of appendectomy Family History Mother Breast cancer late 40s Diabetes Cirrhosis, alcoholic Alcohol use disorder Paternal Grandfather Heart disease Maternal Grandmother Cancer Paternal Grandmother Cancer Father Migraine Environmental allergies No sense of smell Social History Smoking/Tobacco Use Status: Current every day Tobacco Type: e-cigarettes Smoking risk assessment performed?: Yes Alcohol Intake: never Drug use: Occasionally Substance use type: marijuana Sexually active: Yes Do you think of yourself as: straight/heterosexual Current gender identity: female Female Reproductive History Menstrual control method: vaginal ring History History 1 Para 0 Hx # Term Pregnancies 0 Multiple births 0 Hx # Pregnancies 0 Ectopic pregnancies 0 AB induced 0 Hx Number of Living Children 0 AB spontaneous 0 Past Pregnancies Del. Date GA/Weeks # Preg Succ Route Wgt Sex Labor Lgth Anesth esia Location [facility] 12/01/24 40 No Yes vaginal 3742.137 g Male Karla cca gloss CNM PAWSS Have you Been Recently Intoxicated or Drunk Within the Last 30 days?: No Have you Ever Experienced Previous Episodes of Alcohol Withdrawal?: No Have you ever Experienced Withdrawal Seizures?: No Have you ever Experienced Delirium Tremens(DT)s?: No Have you ever undergone Alcohol Rehabilitation Treatment (i.e, inpt ot outpatient treatment programs)?: No Have you ever Experienced Blackouts?: No Have you ever Combined Alcohol with other Downers within the last 90 days?: No Have you ever Combined Alcohol with any other Substance of Abuse during the last 90 days?: No Result: 0
[2025-03-10 09:09] VITALS: RESP 5; RESP 8
[2025-03-10] MEDS: predniSONE 20 MG TAB 60 MG PO (09:09)
[2025-03-10] MEDS: Albuterol/Ipratropium 3 ML UPD VIAL UPD ×2 (09:09→10:15)
[2025-03-10 10:39] LABS: COVID-19 PCR Negative (Negative); Influenza A PCR Negative (Negative); Influenza B PCR Negative (Negative); RSV PCR Negative (Negative)
[2025-03-10 10:41] LABS: Source Nasopharynx
[2025-03-10 10:54] VITALS: BP 141/105; PULSE 96; RESP 16; O2SAT 94
== END 2025-03-10 10:55 | disposition home or self-care (01) ==
PROVIDERS: Emergency Provider Registered Nurse Emergency; PCP Nurse Practitioner Family
DX: J45.901 Unspecified asthma with (acute) exacerbation (principal); J06.9 Acute upper respiratory infection, unspecified; F17.290 Nicotine dependence, other tobacco product, uncomplicated
CPT/HCPCS: 87637; 94640; 99284; 71046; 99283; J7512; J7620

== ENCOUNTER 2025-07-04 16:04 | Outpatient (REF) | payer MEDICAID, SELFPAY ==
[2025-07-04 20:59] LABS: Abs Immature Grans 0.01 10^3/uL (0.0-0.06); HCT 40.6 % (36.0-46.0); HGB 12.7 g/dL (11.2-15.7); Immature Grans % 0.2 %; MCH 26.6 pg (27.0-33.0); MCHC 31.3 % (32.0-36.0); MCV 85 fL (80-95); MPV 9.9 fL (8.0-11.0); Platelet Count 414 10^3/uL (130-400); RBC 4.77 10^6/uL (3.93-5.22); RDW 13.2 % (11.7-14.6); RDW-SD 41.2 fL; WBC 6.51 10^3/uL (4.4-10.8)
[2025-07-04 21:11] LABS: Iron 30 ug/dL (50-170); Total Iron Binding Capacity 497 ug/dL (250-450); Transferrin Sat 6 % (15-50)
[2025-07-04 22:36] LABS: Ferritin 7 ng/mL (8-252)
== END 2025-07-04 16:05 | disposition home or self-care (01) ==
LOC: NCHCN 16:04
PROVIDERS: PCP Nurse Practitioner Family; Visit Provider Nurse Practitioner Family
DX: D50.9 Iron deficiency anemia, unspecified (principal)
CPT/HCPCS: 82728; 83540; 83550; 85025